=== PATIENT | female | born 1940 | race Caucasian/White ===

== ENCOUNTER → 2017-05-22 | Outpatient (CLI) | payer OTHER ==
[~2017-05-22] MED LIST: CALC-354 PO; CLB200 PO; CYCL5TAB PO; DOCU100C PO; GABA-112 PO; LSN40 PO; SYN75 PO
[2017-05-22 17:39] LABS: URINE APPEARANCE CLEAR (CLEAR); URINE BILIRUBIN NEG (NEG); URINE COLOR YELLOW; URINE EPITHELIAL CELL AUTO >30 /lpf (0-5); URINE NITRITE NEG (NEG); URINE PH 6.5 (4.5-7.5); URINE SPECIFIC GRAVITY 1.026 (1.000-1.030); UROBILINOGEN NEG (NEG)
[2017-05-22 17:54] LABS: MANUAL MICROSCOPIC REQUIRED? NO; REVIEW REQ? YES
[2017-05-22 18:00] LABS: URINE MUCUS PRESENT (NONE PRSENT)
== END | disposition home or self-care (01) ==
LOC: C.LABBFT 13:58
PROVIDERS: ATTEND Physician Assistant Medical
DX: R39.9 Unspecified symptoms and signs involving the genitourinary system (principal)

== ENCOUNTER → 2017-05-24 | Outpatient (CLI) | payer OTHER ==
[2017-05-24 12:32] LABS: BASO % 0.7 %; BASO ABS # 0.04 K/uL (0-0.2); COMPLETE YES; EOS % 2.8 %; HEMATOCRIT 41.9 % (37-47); IG% 0.2 %; LYMPH % 18.4 %; LYMPH ABS # 1.06 K/uL (1.2-3.4); MEAN CELL VOLUME 93.1 fL (80-100); MEAN CORPUSCULAR HEMOGLOBIN 30.2 pg (25-34); MEAN CORPUSCULAR HGB CONC 32.5 g/dl (32-36); MEAN PLATELET VOLUME 10.9 fL (7.4-10.4); MONO % 11.3 %; NEUT % 66.6 %; PLATELET COUNT 231 K/uL (130-400); WHITE BLOOD COUNT 5.75 K/uL (4.8-10.8)
[2017-05-24 12:57] LABS: ALT/SGPT 24 U/L (12-78); AST/SGOT 25 U/L (15-37); BLOOD UREA NITROGEN 21 mg/dl (7-18); BUN/CREATININE RATIO 22.6 (10-20); CALCIUM 9.5 mg/dl (8.5-10.1); CARBON DIOXIDE 27 mmol/L (21-32); CHLORIDE 106 mmol/L (98-107); CREATININE 0.92 mg/dl (0.60-1.20); GLUCOSE 95 mg/dl (70-99); POTASSIUM 4.3 mmol/L (3.5-5.1); SODIUM 141 mmol/L (136-145)
[2017-05-24 13:08] LABS: ALB/GLOB RATIO 0.9 (0.9-2); ALKALINE PHOSPHATASE 73 U/L (45-117); CHOLESTEROL 197 mg/dl (0-200); HDL CHOLESTEROL 98 mg/dl; LDL CHOLESTEROL CALCULATED 86 mg/dl; THYROID STIMULATING HORMONE 0.176 uIu/ml (0.300-4.500); TRIGLYCERIDES 66 mg/dl (0-150); VERY LOW DENSITY LIPOPROT CALC 13 mg/dl
== END | disposition home or self-care (01) ==
LOC: C.LABBFT 11:13
PROVIDERS: ATTEND Internal Medicine
DX: I10 Essential (primary) hypertension (principal); E03.9 Hypothyroidism, unspecified

== ENCOUNTER → 2018-02-19 | Outpatient (CLI) | payer OTHER ==
[~2018-02-19] MED LIST changes: +BUSP5TAB59 PO; -CALC-354 PO; +CHOL1CAP67; -DOCU100C PO; +IBUP-103 PO; +LISI40TA3 PO; -LSN40 PO
--- NOTE | 2018-02-19 09:59 | DIAGNOSTIC IMAGING REPORT ---
(CHEST) THORAX WITHOUT CLINICAL HISTORY: 77 years-old Female presenting with R91.1 Pulmonary nodule. TECHNIQUE: Multidetector CT imaging of the chest was performed without the use of intravenous contrast. IV contrast: None. A dose lowering technique was used consistent with the principles of ALARA (as low as reasonably achievable). COMPARISON: 05/18/2013. CT DOSE (mGy.cm): The estimated cumulative dose is 205.65 mGy.cm. FINDINGS: Instrument Inspector topogram: Hyperinflation. On soft tissue windows, thyroid poorly visualized. Normal thoracic inlet otherwise. No axillary, supraclavicular, or mediastinal lymphadenopathy. Evaluation of the ish limited without intravenous contrast. Atherosclerosis of the aorta. Four-vessel aortic arch. Ectasia of the ascending aorta measuring 3.6 cm in diameter. Normal heart size. Coronary artery calcification. No pericardial or pleural effusion. Well-defined hypodensity in the left hepatic lobe, indeterminate but likely hepatic cyst or smaller adjacent similar appearing lesion likely cyst. On lung windows, hyperinflated lungs. Pleural parenchymal scarring with paraseptal emphysematous changes at the apices. Scattered linear opacities in the right middle lobe and right lower lobe likely scarring. Vague groundglass and linear opacity in the superior segment of the lingula (series 4 image 131), unchanged and likely scarring. Focal solid nodular region along an area of scarring in the superior segment of the right lower lobe measuring 8 mm (series 4 image 127). This is new from prior. Multiple punctate nodules evident bilaterally. These nodules were present on prior exam. Limited bronchiectasis suggested. Central airways patent. On bone windows, degenerative changes of the spine. IMPRESSION: 1. Solid 8 mm pulmonary nodule in the right lower lobe. Follow-up per Carlos Society 2017 recommendations below. Alternatively, this may represent a nodular focus of scarring. This is new from prior. 2. Multiple bilateral punctate pulmonary nodules similar to 2013. Combined with scattered areas of scarring and limited bronchiectasis, this could suggest a chronic indolent atypical infection such as mycobacterium avium intracellulare though the lack of significant progression may argue against active infection. 3. Pleural parenchymal scarring and paraseptal emphysematous changes at the apices as on prior exam. Please refer to below summary of Fleischner Society 2017 recommendations for follow-up of incidental CT nodules (H Raheel et al. Guidelines for management of incidental pulmonary nodules detected on CT images: From the Fleischner Society 2017. Radiology 2017; 284: 228-243.) SOLID NODULES Single nodule; size < 6 mm * Low risk patients: No routine follow-up * High risk patients: Optional CT at 12 months Single nodule; size 6-8 mm * Low risk patients: CT at 6-12 months, then consider CT at 18-24 months * High risk patients: CT at 6-12 months, then at 18-24 months Single nodule; size > 8 mm * Either low or high risk patients: Considered CT at 3 months, PET/CT, or tissue sampling Multiple nodules; size < 6 mm * Low risk patients: No routine follow up * High risk patients: Optional CT at 12 months Multiple nodules; size 6-8 mm * Low risk patients: CT at 3-6 months, then consider CT at 18-24 months * High risk patients: CT at 3-6 months, then at 18-24 months Multiple nodules; size > 8 mm * Low risk patients: CT at 3-6 months, then consider at 18-24 months * High risk patients: CT at 3-6 months, then at 18-24 months SUBSOLID NODULES Single ground-glass nodule * Nodule size < 6 mm: No routine follow-up * Nodule size > or = 6 mm: CT at 6-12 months to confirm persistence, then CT every 2 years until 5 years Single part-solid nodule * Nodule size < 6 mm: No routine follow-up * Nodules size > or = 6 mm: CT at 3-6 months to confirm persistence. If unchanged and solid component remains < 6 mm, annual CT should be performed for 5 years Multiple nodules * Nodule size < 6 mm: CT at 3-6 months. If stable, consider CT at 2 and 4 years. * Nodules size > or = 6 mm: CT at 3-6 months. Subsequent management based on the most suspicious nodule(s) NOTE: 1) These guidelines apply to incidental nodules. These guidelines do NOT apply to patients younger than 35 years, immunocompromised patients, or patients with cancer. 2) Risk categories: * Low risk patients: Minimal or absent history of smoking and/or other known risk factors * High risk patients: History of smoking, exposure to other carcinogens, emphysema, fibrosis, upper lobe location, family history of lung cancer, etc. 3) If a nodule up to 8 mm is partly solid or is ground glass, further follow-up is required after 24 months to exclude possible slow growing adenocarcinoma. Electronically signed by: Misael Mcclendon M.D. 02/19/2018 9:58 AM Dictated Date/Time: 02/19/2018 9:50 AM
== END | disposition home or self-care (01) ==
LOC: C.CTS 09:33
PROVIDERS: ATTEND Physician Assistant Medical
DX: R91.1 Solitary pulmonary nodule (principal)

== ENCOUNTER 2020-01-24 19:47 | Inpatient (IN) ==
[2020-01-24] MEDS ORDERED: MoRPHine SULFATE 2 MG/ML CARP IV PRN (20:17)
--- NOTE | 2020-01-24 20:27 | Emergency Department Note ---
History of Present Illness General Chief complaint: Hip Pain Stated complaint: FALL Time Seen by Provider: 01/24/20 19:58 Source: patient Mode of arrival: EMS Limitations: no limitations History of Present Illness Provider complaint: left hip pain Onset (ago): hour(s) Location: hip, pelvis and lower extremity Radiation: extremity Severity: moderate Pain Consistency: + constant Maximum Pain Intensity: 2 Relieved By: + immobilization Exacerbated By: + movement Associated symptoms: + denies other symptoms Treatments prior to arrival: none This is an 79-year-old female who presents from home after a fall. Patient states she had not tied her shoes and her shoes got caught in her walker and she fell landing on her left side. Patient denies head injury or loss of consciousness. Patient states she could not get up due to pain at her left thigh and hip. Patient denies any prior injury or surgery to the left hip. Patient denies any dizziness, nausea, chest pain, trouble breathing. Patient denies any numbness or tingling. Patient states the pain is tolerable if she does not move the left leg, however with any movement pain is much worse. Patient denies any swelling. Patient denies any other preceding or prodromal symptoms to suggest near syncope. Patient denies any use of anticoagulation. Denies any recent change in medications. Pt seen during a time of high acuity and national emergency pandemic while wearing PPE. Home Medications Home Medications Medication Instructions Recorded Confirmed Type docusate sodium [Stool Softener] 100 mg PO DAILY 05/13/18 01/24/20 History calcium carbonate 600 mg (1,500 2 cap PO HS cap 02/06/19 01/24/20 History mg)-vitamin D3 500 unit capsule cyclosporine [Restasis] 1 drp OPB Q12H PRN 09/10/19 01/24/20 History ibuprofen [Advil] 400 mg PO Q6H PRN 09/10/19 01/24/20 History timolol maleate 1 drp OPB QAM 09/10/19 01/24/20 History buspirone 5 mg tablet 5 mg PO BID PRN #180 tab 09/21/19 01/24/20 Rx lisinopril 40 mg tablet 40 mg PO QAM #90 tab 09/21/19 01/24/20 Rx celecoxib 200 mg capsule 200 mg PO DAILY #90 cap 10/14/19 01/24/20 Rx levothyroxine 75 mcg tablet 75 mcg PO DAILY #90 tab 10/16/19 01/24/20 Rx gabapentin [Neurontin] 100 mg PO TID 01/24/20 01/24/20 History Allergies Allergy/AdvReac Type Severity Reaction Status Date / Time No Known Allergies Allergy Verified 01/24/20 21:54 Past Med/Surg History Medical History Anemia Anxiety Cancer COLON POLYP REMOVED GERD (gastroesophageal reflux disease) Hyperlipidemia Hypothyroidism Non-traumatic compression fracture of thoracic vertebra (Inactive) Osteoarthritis Peripheral neuropathy Surgical History History of bilateral tubal ligation History of cataract surgery RT History of colonoscopy History of tonsillectomy and adenoidectomy (Resolved) History of tooth extraction Family History Father Bone cancer Mother Hypertension Myocardial infarction Social History Preferred Language: Indonesian Communication Ability: Effective Er Nurse Required: No Beliefs That Will Affect Care: None Current Living Situation: Alone Other Information That Helps Us Care for You: No Feels Safe at Home: Yes Safety Concerns: Feels Safe At This Time Smoking Status: Never smoker Do You Dip or Chew Tobacco: No ; Second Hand Exposure: No ; Hx Alcohol Use: No Hx Substance Use: No Review of Systems See HPI for pertinent positives & negatives. and A total of 10 systems reviewed and were otherwise negative Physical Exam Vital Signs Vital Signs - 24 hr 01/24/20 20:14 01/24/20 21:44 Temperature 36.8 C Temperature Source Oral Pulse Rate 85 Pulse Rate [Apical] 75 Pulse Rhythm Regular Pulse Rhythm [Apical] Regular Pulse Strength Normal Pulse Strength [Apical] Normal Respiratory Rate 18 20 Respiratory Effort / Characteristics Non-Labored Spontaneous Non-Labored Spontaneous Respiratory Depth Normal Normal Respiratory Pattern Regular Blood Pressure 215/107 H Blood Pressure [Right Arm] 201/111 H Blood Pressure Mean 143 Blood Pressure Mean [Right Arm] 141 Blood Pressure Position Lying Blood Pressure Position [Right Arm] Lying Pulse Oximetry 85 L 95 Oxygen Delivery Method Room Air Room Air Sepsis Recent Fever Within 48 Hours No Sepsis New/Unexplained Change in Mental Status No Sepsis Action Taken by Nursing No Action Required GENERAL: alert, well appearing, well nourished, no distress, non-toxic HEAD: nc/at, no cephalohematoma EYE EXAM: normal conjunctiva, PERRL and EOM's grossly intact OROPHARYNX: no exudate, no erythema, lips, buccal mucosa, and tongue normal and mucous membranes are moist NECK: supple, no nuchal rigidity, no adenopathy, non-tender, FROM LUNGS: Clear to auscultation. Normal chest wall mechanics, no w/r/r HEART: no murmurs, S1 normal and S2 normal, no chest wall tenderness with palpation ABDOMEN: abdomen soft, non-tender, normo-active bowel sounds, no masses, no rebound or guarding. BACK: Back is symmetrical on inspection and there is no deformity, no midline tenderness, no CVA tenderness. SKIN: no rashes and no bruising UPPER EXTREMITIES: upper extremities are grossly normal. FROM, nml pulses b/l. LOWER EXTREMITIES: No pitting edema. Nml pulses b/l. Pain with palpation over the left lateral hip and proximal femur, left leg held in slight external rotation and appears slightly shortened, no other bony tenderness with palpation of the pelvis and pelvis stable to compression. No further distal deformity or evidence of trauma. Nml sensation b/l. NEURO EXAM: Normal sensorium, cranial nerves II-XII grossly intact, normal speech, no gross weakness of arms, no gross weakness of legs. Gross sensation intact. Course Course 2119: Patient and daughter at bedside updated on results and plan. Patient has never seen orthopedics prior. Daughter states patient does get urinary tract infections. 2129: Case discussed with Dr. Lu. They will contact orthopedics. Made aware of UTI and antibiotics. Administered Medications Docusate Sodium (Colace) 100 mg PO DAILY [facility] Stop: 02/24/20 08:59 Last Admin: 01/25/20 07:57 Dose: Not Given Documented by: [id number] Gabapentin (Neurontin) 100 mg PO TID [facility] Stop: 02/24/20 08:59 Last Admin: 01/25/20 15:22 Dose: 100 mg Documented by: [id number] Admin: 01/25/20 07:58 Dose: Not Given Documented by: [id number] Sodium Chloride (Nss 1000ml) 1,000 mls @ 80 mls/hr IV .[id number] [facility] Stop: 02/24/20 15:59 Last Admin: 01/25/20 15:22 Dose: 80 mls/hr Documented by: [id number] Levothyroxine Sodium (Synthroid) 75 mcg PO DAILYBB [facility] Stop: 02/24/20 06:29 Last Admin: 01/25/20 05:27 Dose: Not Given Documented by: [id number] [facility]inop[facility] (Zestril) [facility] Stop: 02/24/20 08:59 Last Admin: 01/25/20 07:58 Dose: Not Given Documented by: [id number] Morphine Sulfate (Morphine Sulfate) 2 mg IV Q2H PRN PRN Reason: MODERATE Pain (Scale 4,5,6) Stop: 02/07/20 23:08 Last Admin: 01/25/20 15:30 Dose: 2 mg Documented by: [id number] Admin: 01/25/20 05:24 Dose: 2 mg Documented by: [id number] Admin: 01/24/20 23:53 Dose: 2 mg Documented by: [id number] Timolol Maleate (Timoptic 0.25% Oph) 1 drops OPB [facility] Stop: 02/24/20 08:59 Last Admin: 01/25/20 08:00 Dose: 1 drops Documented by: [id number] Discontinued Medications Sodium Chloride (Nss 1000ml) 1,000 mls @ 150 mls/hr IV .[id number] [facility] Stop: 01/25/20 03:09 Last Infusion: 01/25/20 00:06 Dose: 0 mls/hr Documented by: [id number] Admin: 01/24/20 20:53 Dose: 150 mls/hr Documented by: [id number] Ceftriaxone Sodium (Rocephin) 1,000 mg in 50 mls @ 100 mls/hr IV NOW [facility] Stop: 01/24/20 21:52 Last Infusion: 01/25/20 00:06 Dose: 0 mls/hr Documented by: [id number] Admin: 01/24/20 21:56 Dose: 100 mls/hr Documented by: [id number] Dextrose/Lactated Ringer's (D5w And Lactated Ringers) 1,000 mls @ 80 mls/hr IV .[id number] [facility] Stop: 01/26/20 00:08 Last Admin: 01/25/20 15:21 Dose: Not Given Documented by: [id number] Infusion: 01/25/20 15:21 Dose: 0 mls/hr Documented by: [id number] Infusion: 01/25/20 10:47 Dose: 0 mls/hr Documented by: [id number] Admin: 01/24/20 23:53 Dose: 80 mls/hr Documented by: [id number] Labetalol HCl (Normodyne) 5 mg IV NOW [facility] Stop: 01/24/20 22:56 Last Admin: 01/24/20 23:53 Dose: 5 mg Documented by: [id number] Cosigned by: [id number] Morphine Sulfate (Morphine Sulfate) 2 mg IV Q1H PRN PRN Reason: Moderate Pain (Rating 3,4,5,6) Stop: 02/07/20 20:16 Last Admin: 01/24/20 20:52 Dose: 2 mg Documented by: [id number] Medical Decision Making Differential Diagnosis Differential diagnoses include major intracranial, cervical, spinal, thoracic, abdominal, pelvic and neurologic injury. Fracture, contusion, sprain, strain, laceration, abrasions included as well. Medical Records Attestation: I reviewed the patient's medical records. Home Medications Current Medication List: was personally reviewed by me Laboratory Data Attestation: I reviewed the patient's lab results. Result diagrams: 01/25/20 07:27 01/25/20 06:35 Lab Results 01/24/20 01/24/20 01/24/20 Range/Units 20:27 20:27 20:27 WBC 12.60 H (4.8-10.8) K/uL RBC 4.22 (4.2-5.4) M/uL Hgb 13.0 (12.0-16.0) g/dL Hct 41.2 (37-47) % MCV 97.6 (80-100) fL MCH 30.8 (25-34) pg MCHC 31.6 L (32-36) g/dL RDW Std Deviation 50.5 H (36.4-46.3) fL RDW Coeff of Ralf 14.1 (11.5-14.5) % Plt Count 191 (130-400) K/uL MPV 10.3 (7.4-10.4) fL Immature Gran % (Auto) 0.8 % Neut % (Auto) 87.0 % Lymph % (Auto) 5.1 % [place]bon % (Auto) 5.2 % Eos % (Auto) 1.7 % Baso % (Auto) 0.2 % Neut # (Auto) 10.97 H (1.4-6.5) K/uL Lymph # (Auto) 0.64 L (1.2-3.4) K/uL Bourbon # (Auto) 0.66 H (0.11-0.59) K/uL Eos # (Auto) 0.21 (0-0.5) K/uL Baso # (Auto) 0.02 (0-0.2) K/uL Immature Gran # (Auto) 0.10 H (0.00-0.02) K/uL PT 11.3 (9.0-12.0) Seconds INR 1.1 (0.9-1.1) APTT 26.7 (21.0-31.0) Seconds PTT Ratio 1.0 Sodium (136-145) mmol/L Potassium (3.5-5.1) mmol/L Chloride (98-107) mmol/L Carbon Dioxide (21-32) mmol/L Anion Gap (3-11) BUN (7-18) mg/dl Creatinine (0.6-1.2) mg/dl Est Cr Clr Drug Dosing ml/min Est GFR ( Amer) Est GFR (Non-Af Amer) BUN/Creatinine Ratio (10-20) Glucose (70-99) mg/dl Calcium (8.5-10.1) mg/dl Urine Color Urine Appearance (Clear) Urine pH (4.5-7.5) Ur Specific [place] (1.000-1.030) Urine Protein (Negative) Urine Glucose (UA) (Negative) Urine Ketones (Negative) Urine Blood (Negative) Urine Nitrite (Negative) Urine Bilirubin (Negative) Urine Urobilinogen (Negative) Ur Leukocyte Esterase (Negative) Urine WBC (Auto) (0-5) /hpf Urine RBC (Auto) (0-4) /hpf U Hyaline Cast (Auto) (0-5) /lpf U Epithel Cells (Auto) (0-5) /lpf Urine Bacteria (Auto) (Negative) Blood Type O Positive Antibody Screen NEGATIVE 01/24/20 01/24/20 Range/Units 20:27 21:00 WBC (4.8-10.8) K/uL RBC (4.2-5.4) M/uL Hgb (12.0-16.0) g/dL Hct (37-47) % MCV (80-100) fL MCH (25-34) pg MCHC (32-36) g/dL RDW Std Deviation (36.4-46.3) fL RDW Coeff of Ralf (11.5-14.5) % Plt Count (130-400) K/uL MPV (7.4-10.4) fL Immature Gran % (Auto) % Neut % (Auto) % Lymph % (Auto) % [place] % (Auto) % Eos % (Auto) % Baso % (Auto) % Neut # (Auto) (1.4-6.5) K/uL Lymph # (Auto) (1.2-3.4) K/uL [place] # (Auto) (0.11-0.59) K/uL Eos # (Auto) (0-0.5) K/uL Baso # (Auto) (0-0.2) K/uL Immature Gran # (Auto) (0.00-0.02) K/uL PT (9.0-12.0) Seconds INR (0.9-1.1) APTT (21.0-31.0) Seconds PTT Ratio Sodium 142 (136-145) mmol/L Potassium 4.2 (3.5-5.1) mmol/L Chloride 108 H (98-107) mmol/L Carbon Dioxide 30 (21-32) mmol/L Anion Gap 4.0 (3-11) BUN 25 H (7-18) mg/dl Creatinine 0.92 (0.6-1.2) mg/dl Est Cr Clr Drug Dosing 31.6 ml/min Est GFR ( Amer) 67.7 Est GFR (Non-Af Amer) 58.4 BUN/Creatinine Ratio 26.8 H (10-20) Glucose 101 H (70-99) mg/dl Calcium 8.8 (8.5-10.1) mg/dl Urine Color Yellow Urine Appearance Cloudy A (Clear) Urine pH 8.0 H (4.5-7.5) Ur Specific [place] 1.018 (1.000-1.030) Urine Protein Trace H (Negative) Urine Glucose (UA) Negative (Negative) Urine Ketones Negative (Negative) Urine Blood Negative (Negative) Urine Nitrite Positive A (Negative) Urine Bilirubin Negative (Negative) Urine Urobilinogen Negative (Negative) Ur Leukocyte Esterase 1+ H (Negative) Urine WBC (Auto) >30 H (0-5) /hpf Urine RBC (Auto) 0-4 (0-4) /hpf U Hyaline Cast (Auto) 1-5 (0-5) /lpf U Epithel Cells (Auto) 5-10 H (0-5) /lpf Urine Bacteria (Auto) 4+ H (Negative) Blood Type Antibody Screen Imaging Data Attestation: I personally reviewed and interpreted this imaging study as follows: My Impression: Chest x-ray: 1 view chest x-ray was reviewed by me and was negative for cardiomegaly, effusions, focal consolidation, wide mediastinum, pneumothorax, and rib fractures. Patient does appear hyperinflated. Left hip/pelvis: 3 views of the left hip and an AP pelvis were reviewed by me. Patient found to have left intertrochanteric hip fracture. No other acute fracture dislocation noted. Blood Pressure Blood Pressure Findings: Elevated blood pressure Blood Pressure Disposition: further management by hospitalist [place] Narrative Elderly female presenting here following what she reports was a mechanical fall at home with her walker. VS stable, pt hypertensive. Given PE findings, concern for left hip fx. Pt denied any other complaints or injury. Denied prodromal or preceeding symptoms to suggest near syncope or other etiology of fall. Pt found to have left intertrochanteric hip fx. Labs sent in addition, UA with UTI. Per daughter at bedside, pt with hx of UTI. Pt given rocephin IV here. Case discussed with hospitalist for medical evaluation and inpatient mgmt. They will consult ortho for additional evaluation and likely surgical intervention. No evidence of bacteremia/sepsis. No evidence of CHRISTOPHER/ARF. I do not suspect pyelo or obstructive uropathy in addition. Pt and daughter made aware of all results and are in agreement with the plan. Pt was noted to be mildly hypoxic initially, doesn't wear home oxygen. No hx of COPD. Pt was able to be weaned off in the ED and she reported no SOB or recent respiratory distress. I do not suspect ACS, PE, and no CXR evidence of chf, effusion, infiltrate, pneumothorax, or rib fx. An order was placed for continuous cardiac monitoring. The monitor shows a rate of 80 with normal sinus_ rhythm. Impression & Plan Closed intertrochanteric fracture of left hip, Hypoxia, Acute UTI (urinary tract infection), Fall Discharge Plan Visit Data *Final* Discharge Date/Time: 01/24/20 23:02 Chief Complaint: Hip Pain Stated Complaint: FALL ED Provider: Dalia Brito Discharge Problem: Closed intertrochanteric fracture of left hip, Hypoxia, Acute UTI (urinary tract infection), Fall Patient Disposition: Admitted As Inpatient Discharge Instructions Interventions: ED Discharge Assessment Last Done: 01/24/20 23:02 Discharge Problem: Closed intertrochanteric fracture of left hip Qualifiers: Encounter type: initial encounter Fracture alignment: nondisplaced Qualified Code(s): S72.145A - Nondisplaced intertrochanteric fracture of left femur, initial encounter for closed fracture Fall Qualifiers: Encounter type: initial encounter Qualified Code(s): W19.XXXA - Unspecified fall, initial encounter
[2020-01-24] MEDS ORDERED: SODIUM CHLORIDE 0.9% 1000ML 1,000 ML IV SCH (20:30)
[2020-01-24 20:44] LABS: Basophils # (auto) 0.02 K/uL (0-0.2); Basophils % (auto) 0.2 %; Eosinophils # (auto) 0.21 K/uL (0-0.5); Eosinophils % (auto) 1.7 %; Hematocrit (blood only) 41.2 % (37-47); Immature Granulocytes % (auto) 0.8 %; Lymphocytes # (auto) 0.64 K/uL (1.2-3.4); Lymphocytes % (auto) 5.1 %; Mean Corpuscular Hemoglobin 30.8 pg (25-34); Mean Corpuscular Hgb Conc 31.6 g/dL (32-36); Mean Corpuscular Volume 97.6 fL (80-100); Mean Platelet Volume 10.3 fL (7.4-10.4); Monocytes # (auto) 0.66 K/uL (0.11-0.59); Monocytes % (auto) 5.2 %; Neutrophils # (auto) 10.97 K/uL (1.4-6.5); Platelet Count 191 K/uL (130-400); RDW Coefficient of Variation 14.1 % (11.5-14.5); RDW Standard Deviation 50.5 fL (36.4-46.3); Red Blood Count 4.22 M/uL (4.2-5.4)
[2020-01-24 20:59] LABS: BUN Creatinine Ratio 26.8 (10-20); Calcium 8.8 mg/dl (8.5-10.1); Creatinine Clr Calc Pharmacy 31.6 ml/min; Est GFR (African American) 67.7; Est GFR (Non-African American) 58.4; Potassium 4.2 mmol/L (3.5-5.1)
[2020-01-24 21:02] LABS: INR 1.1 (0.9-1.1); Partial Thromboplastin Time 26.7 Seconds (21.0-31.0); Prothrombin Time 11.3 Seconds (9.0-12.0)
[2020-01-24 21:11] LABS: Appearance Urine Cloudy (Clear); Bacteria Urine Automated 4+ (Negative); Bilirubin Urine Negative (Negative); Blood Urine Negative (Negative); Color Urine Yellow; Glucose Urine UA Negative (Negative); Ketones Urine Negative (Negative); Leukocyte Esterase Urine 1+ (Negative); Nitrite Urine Positive (Negative); RBC Urine Automated 0-4 /hpf (0-4); Specific Gravity Urine 1.018 (1.000-1.030); Urobilinogen Urine Negative (Negative); WBC Urine Automated >30 /hpf (0-5)
[2020-01-24 21:16] LABS: Protein Urine Trace (Negative); Sulfosalicylic Acid Urine Positive (Negative)
[2020-01-24] MEDS ORDERED: cefTRIAXone SODIUM 1,000 MG/50 ML BAG IV STA (21:23)
--- NOTE | 2020-01-24 22:36 | History & Physical Report ---
Date of Service January 24, 2020 Assessment & Plan (1) Hip fracture, intertrochanteric: Candace Moon is a 79 y/o female with past medical hx of osteoporosis w/compression fractures of the thoracic spine, cervical dystonia and depression/anxiety, HTN, poor appetite, physical deconditioning who presents to [facility] ED for CC of Fall. - Left hip intertrochanteric fracture. Most likely mechanical in setting of osteoporosis and significantly underweight with BMI of 15.8. - consults placed to ortho and anesthesia - Hip fracture order set used with proper nursing protocols ordered. - Morphine 2mg IV PRN for pain. - NPO - ACS Surgical Risk calculator used with patient being a below average risk for surgical complication (5.6%) or serious complication (5.6%). - will order COVID testing in need for possible surgical intervention. - Mild Leukocytosis most likely stress demargination response, trend. - History of memory issues in elderly 79 y/o, ordered fall precautions and one-on-one PRN if becomes delirious with admission. Code: DNR/DNI FENGI: NPO, D5W Lactated ringers IVF @ 80ml/hr x 2 bags DVT ppx: SCDs Dispo: Med/sug tele, full admit (2) Anxiety and depression: currently anxious about being alone in hospital c/w buspirone 5mg BID PO (3) Osteoporosis: Noted in history, was on Calcium and Vit D as outpatient. Unable to find DEXA records from chart review (4) Hypothyroidism: c/w synthroid 75mcg PO (5) Hypertension: c/w lisinopril 40mg PO daily Hydralazine 10mg IV PRN for >180/>110 (6) Poor appetite: BMI of 15.8. Noted recent history of weight loss and poor appetite. Dietary consult ordered Maybe could benefit from Remeron or appetite stimulant. Is very thin and would need increase protein for proper healing. (7) UTI (urinary tract infection): UA with positive nitrites, WBC >30, and eipthel cells 5-10, symptoms of f requency. Treated with Rocephin in ED and will continue, follow culture and may discontinue if negative (8) Hypoxia: Was noted to have pulse ox in ED of 85% without symptoms corrected with NC O2, follow clinically History of Present Illness Chief Complaint: Fall; Left hip intertrochanteric hip fracture Primary Care Provider: Gonzalo Johnson MD Candace Moon is a 79 y/o female with past medical hx of osteoporosis w/compression fractures of the thoracic spine, cervical dystonia and depression/anxiety, HTN, poor appetite, physical deconditioning who presents to [facility] ED for CC of Fall. She notes fall occurred about 6:45pm. She was getting up from sitting to go to bathroom. She states that she uses a walker and her walker slid out from under her. She fell onto her left side. She was unable to get up. Her two daughters were at patient's home and helped her up. She denied any pro-dromal symptoms, no chest pain, dizziness/lightheadedness. She denies any other injury. Did not hit her head, no acute neck injury, no knee or ankle or upper extremity injury. She notes she does live alone with her cat. She reports that she last had something to drink was about 5pm; she cannot recall the last time she ate food. She denies any numbness or tingling in her lower extremities. She points to location of pain to her left hip. Her pain was improved with morphine 2mg IV x1 in ED. She had a UTI concerning for infection and notes some urinary frequency but no dysuria. Her daughter is with her at bedside and is able to help as historian. Patient is a vague historian. Patient and daughter acknowledge that patient has a living will and is a DNR/DNI. She is not on any current anti-coagulation. She was started on Rocephin IV for UTI. She also had pulse ox of 87% which was corrected with NC O2. No reported smoking history, does not wear O2 at home. No respiratory complaints of cough or dyspnea. Allergies Allergy/AdvReac Type Severity Reaction Status Date / Time No Known Allergies Allergy Verified 01/24/20 21:54 Home Medications Home Medications Medication Instructions Recorded Confirmed Type docusate sodium [Stool Softener] 100 mg PO DAILY 05/13/18 01/24/20 History calcium carbonate 600 mg (1,500 2 cap PO HS cap 02/06/19 01/24/20 History mg)-vitamin D3 500 unit capsule cyclosporine [Restasis] 1 drp OPB Q12H PRN 09/10/19 01/24/20 History ibuprofen [Advil] 400 mg PO Q6H PRN 09/10/19 01/24/20 History timolol maleate 1 drp OPB QAM 09/10/19 01/24/20 History buspirone 5 mg tablet 5 mg PO BID PRN #180 tab 09/21/19 01/24/20 Rx lisinopril 40 mg tablet 40 mg PO QAM #90 tab 09/21/19 01/24/20 Rx celecoxib 200 mg capsule 200 mg PO DAILY #90 cap 10/14/19 01/24/20 Rx levothyroxine 75 mcg tablet 75 mcg PO DAILY #90 tab 10/16/19 01/24/20 Rx gabapentin [Neurontin] 100 mg PO TID 01/24/20 01/24/20 History Past Med/Surg History Medical History Anemia Anxiety Cancer COLON POLYP REMOVED GERD (gastroesophageal reflux disease) Hyperlipidemia Hypothyroidism Non-traumatic compression fracture of thoracic vertebra (Inactive) Osteoarthritis Peripheral neuropathy Surgical History History of bilateral tubal ligation History of cataract surgery RT History of colonoscopy History of tonsillectomy and adenoidectomy (Resolved) History of tooth extraction Family History Father Bone cancer Mother Hypertension Myocardial infarction Social History Preferred Language: Qatari Communication Ability: Effective Housemaid Required: No Current Living Situation: Alone Feels Safe at Home: Yes Smoking Status: Never smoker Second Hand Exposure: No ; Hx Alcohol Use: No Hx Substance Use: No Review of Systems Review of Systems: All systems reviewed & are unremarkable except as noted in HPI & below Constitutional: no fever and no chills Eyes: no diplopia and no spots in vision Ear, Nose, Mouth, Throat: + sore throat (resolved); no nasal congestion, no epistaxis and no facial pain Respiratory: no cough and no dyspnea Cardiovascular: no chest pain and no palpitations Gastrointestinal: no abdominal pain, no nausea and no vomiting Genitourinary: as per Subjective / HPI; no dysuria Musculoskeletal: as per Subjective / HPI and + joint pain (left hip) Integumentary: no rash and no lesions Neurologic: + falls; no numbness and no headache(s) Physical Exam Constitutional: + thin, + frail appearing, cooperative, comfortable and + underweight Eyes: PERRL, conjunctivae normal, anicteric sclerae ENMT: dry mucous membranes; external ear and nose normal Neck: trachea midline no cervical bony tenderness Respiratory: normal respiratory effort, lungs clear to auscultation Cardiovascular: Rate/Rhythm: regular rate and regular rhythm Extremities: no edema Gastrointestinal (Abdomen): Percussion/Palpation: abdomen nontender, no guarding and abdomen not rigid Musculoskeletal: Head/Neck/Chest: normocephalic and head atraumatic left lateral hip and proximal thigh tender to palpation; left leg shortened; no bony tenderness with palpation of pelvis; no sensory deficit in lower extremities; able to move toes bilaterally. Skin: no rashes, warm and dry Neurologic: CN's II-XI intact bilaterally and awake Psychiatric: Orientation: alert and oriented x 3 Affect: + anxious affect Results & Data Results & Data ([facility]) Vital Signs (Past 12 Hours) Vital Signs Temp Pulse Pulse Resp BP BP Pulse Ox 01/24/20 21:44 75 20 201/111 H 95 01/24/20 20:14 36.8 C 85 18 215/107 H 85 L Laboratory Results Laboratory Results - last 24 hr 01/24/20 01/24/20 01/24/20 20:27 20:27 20:27 WBC 12.60 H RBC 4.22 Hgb 13.0 Hct 41.2 MCV 97.6 MCH 30.8 MCHC 31.6 L RDW Std Deviation 50.5 H RDW Coeff of Ralf 14.1 Plt Count 191 MPV 10.3 Immature Gran % (Auto) 0.8 Neut % (Auto) 87.0 Lymph % (Auto) 5.1 Runnels % (Auto) 5.2 Eos % (Auto) 1.7 Baso % (Auto) 0.2 Neut # (Auto) 10.97 H Lymph # (Auto) 0.64 L Runnels # (Auto) 0.66 H Eos # (Auto) 0.21 Baso # (Auto) 0.02 Immature Gran # (Auto) 0.10 H PT 11.3 INR 1.1 APTT 26.7 PTT Ratio 1.0 Sodium Potassium Chloride Carbon Dioxide Anion Gap BUN Creatinine Est Cr Clr Drug Dosing Est GFR ( Amer) Est GFR (Non-Af Amer) BUN/Creatinine Ratio Glucose Calcium Urine Color Urine Appearance Urine pH Ur Specific [place] Urine Protein Urine Glucose (UA) Urine Ketones Urine Blood Urine Nitrite Urine Bilirubin Urine Urobilinogen Ur Leukocyte Esterase Urine WBC (Auto) Urine RBC (Auto) U Hyaline Cast (Auto) U Epithel Cells (Auto) Urine Bacteria (Auto) Blood Type O Positive Antibody Screen NEGATIVE 01/24/20 01/24/20 20:27 21:00 WBC RBC Hgb Hct MCV MCH MCHC RDW Std Deviation RDW Coeff of Ralf Plt Count MPV Immature Gran % (Auto) Neut % (Auto) Lymph % (Auto) R[place] % (Auto) Eos % (Auto) Baso % (Auto) Neut # (Auto) Lymph # (Auto) R[place]els # (Auto) Eos # (Auto) Baso # (Auto) Immature Gran # (Auto) PT INR APTT PTT Ratio Sodium 142 Potassium 4.2 Chloride 108 H Carbon Dioxide 30 Anion Gap 4.0 BUN 25 H Creatinine 0.92 Est Cr Clr Drug Dosing 31.6 Est GFR ( Amer) 67.7 Est GFR (Non-Af Amer) 58.4 BUN/Creatinine Ratio 26.8 H Glucose 101 H Calcium 8.8 Urine Color Yellow Urine Appearance Cloudy A Urine pH 8.0 H Ur Specific [place] 1.018 Urine Protein Trace H Urine Glucose (UA) Negative Urine Ketones Negative Urine Blood Negative Urine Nitrite Positive A Urine Bilirubin Negative Urine Urobilinogen Negative Ur Leukocyte Esterase 1+ H Urine WBC (Auto) >30 H Urine RBC (Auto) 0-4 U Hyaline Cast (Auto) 1-5 U Epithel Cells (Auto) 5-10 H Urine Bacteria (Auto) 4+ H Blood Type Antibody Screen Medications Administered Sodium Chloride (Nss 1000ml) 1,000 mls @ 150 mls/hr IV .[id number] CHIRAG Stop: 01/25/20 03:09 Last Admin: 01/24/20 20:53 Dose: 150 mls/hr Documented by: [id number] Morphine Sulfate (Morphine Sulfate) 2 mg IV Q1H PRN PRN Reason: Moderate Pain (Rating 3,4,5,6) Stop: 02/07/20 20:16 Last Admin: 01/24/20 20:52 Dose: 2 mg Documented by: [id number] Code Status & VTE Plan Code Status DNR/DNI VTE Prophylaxis Plan VTE Prophylaxis will be ordered: Yes Supervising Physician Co-Signing Physician Notes Patient seen and examined, chart reviewed, case discussed with Dr. White and I agree with his assessment and plan as documented above. Briefly, patient is an 79yo C female presenting with left intertrochanteric hip fracture after a mechanical fall at home. Patient denies CP/palpitations/dizziness/numbness/PARRA preceding or following the fall. No head trauma or LOC. She landed on her left hip resulting in fracture. Patient presently doing alright with no additional complaints. She is uncomfortable but in NAD HEENT - NC/AT, PERRL, MMM Heart - +S1/S2, regular, no m/r/g Lungs - CTA Abd - +BS, soft, NT/ND Ext - NV intact, 2 +pulses in UE/LE bilaterally, LLE externally rotated and shortened, no bruising/hematoma Labs and images reviewed. +Leukocytosis. +UA Assessment/Plan: 79yo C female with left intertrochanteric hip fracture fol lowing mechanical fall at home -Admit to medical floor -Orthopedic Surgery consultation appreciated -Pain control with Morphine PRN -Tentatively plan for OR tomorrow. Pre-operative Covid-19 testing ordered -Ceftriaxone for UTI - follow culture -Remainder of plan as above Resident Activity Tracking Resident Involvement: Resident Care Provided Care Provided: Adult Hospital Medicine
[2020-01-24] MEDS ORDERED: LABETALOL HCL IV 5 MG/ML 20ML IV STA (22:55)
[2020-01-24] MEDS ORDERED: NALOXONE HCL 0.4 MG/1 ML VIAL/CARP IV PRN (23:09)
[2020-01-24] MEDS ORDERED: ACETAMINOPHEN 325 MG TAB PO PRN (23:09)
[2020-01-24] MEDS ORDERED: bisacodyL 10 MG SUPP PR PRN (23:09)
[2020-01-24] MEDS ORDERED: MAGNESIUM HYDROXIDE SUSP 30 ML UDC PO PRN (23:09)
[2020-01-24] MEDS ORDERED: ONDANSETRON INJ 2 MG/ML 2 ML VIAL IV PRN (23:09)
[2020-01-24] MEDS ORDERED: HydrALAZINE HCL 20 MG/ML VIAL IV PRN (23:09)
--- NOTE | 2020-01-24 23:42 | Billing Data ---
Date of Service January 24, 2020 Coding Level of Care Code 28885 Initial Inpt Care Lvl 3
[2020-01-24] MEDS: MoRPHine SULFATE 2 MG/ML CARP IV PRN (23:53)
[2020-01-24] MEDS: D5W AND LACTATED RINGERS 1,000 ML IV SCH (23:53)
--- NOTE | 2020-01-25 02:16 | Anesthesiology Consultation ---
Date of Service January 25, 2020 Assessment & Plan (1) Encounter for pre-operative examination: Chart Review Chart Review: Acceptable Risk for Surgery and Patient NOT seen in Pre Admission Testing Consults Requested none History Height/Weight Height: 5 ft 4 in Weight: 41.7 kg Allergies Allergy/AdvReac Type Severity Reaction Status Date / Time No Known Allergies Allergy Verified 01/24/20 21:54 Medications Home Medications Medication Instructions Recorded Confirmed Last Taken docusate sodium [Stool Softener] 100 mg PO DAILY 05/13/18 01/24/20 01/24/20 calcium carbonate 600 mg (1,500 2 cap PO HS cap 02/06/19 01/24/20 01/24/20 mg)-vitamin D3 500 unit capsule cyclosporine [Restasis] 1 drp OPB Q12H PRN 09/10/19 01/24/20 01/24/20 ibuprofen [Advil] 400 mg PO Q6H PRN 09/10/19 01/24/20 01/24/20 timolol maleate 1 drp OPB QAM 09/10/19 01/24/20 01/24/20 buspirone 5 mg tablet 5 mg PO BID PRN #180 tab 09/21/19 01/24/20 01/24/20 lisinopril 40 mg tablet 40 mg PO QAM #90 tab 09/21/19 01/24/20 01/24/20 celecoxib 200 mg capsule 200 mg PO DAILY #90 cap 10/14/19 01/24/20 01/24/20 levothyroxine 75 mcg tablet 75 mcg PO DAILY #90 tab 10/16/19 01/24/20 01/24/20 gabapentin [Neurontin] 100 mg PO TID 01/24/20 01/24/20 01/24/20 Active Medications Generic Name Dose Route Start Last Admin Trade Name Freq PRN Reason Stop Dose Admin Dextrose/Lactated Ringer's 1,000 mls @ 80 mls/hr 01/24/20 23:09 01/24/20 23:53 D5w And Lactated Ringers IV 01/26/20 00:08 80 mls/hr .[id number] CHIRAG Administration Morphine Sulfate 2 mg 01/24/20 23:09 01/24/20 23:53 Morphine Sulfate IV 02/07/20 23:08 2 mg Q2H PRN Administration MODERATE Pain (Scale 4,5,6) Past Medical History Medical History Anemia Anxiety Cancer COLON POLYP REMOVED GERD (gastroesophageal reflux disease) Hyperlipidemia Hypothyroidism Non-traumatic compression fracture of thoracic vertebra (Inactive) Osteoarthritis Peripheral neuropathy Past Family History Family History Father Bone cancer Mother Hypertension Myocardial infarction Past Surgical History Surgical History History of bilateral tubal ligation History of cataract surgery RT History of colonoscopy History of tonsillectomy and adenoidectomy (Resolved) History of tooth extraction Social History Smoking Status: Never smoker Hx Alcohol Use: No Hx Substance Use: No substance use type: does not use Physical Exam Vital Signs Last Vital Signs Temp 36.8 C 01/24/20 20:14 Pulse 68 01/24/20 23:09 Resp 16 01/24/20 23:02 BP 195/88 H 01/24/20 23:02 Pulse Ox 99 01/24/20 23:02 Testing Laboratory Results 01/24/20 20:27 01/24/20 20:27 PT 11.3 Seconds (9.0-12.0) 01/24/20 20: INR 1.1 (0.9-1.1) 01/24/20 20:27 APTT 26.7 Seconds (21.0-31.0) 01/24/20 20:27 Urine Color Yellow 01/24/20 21:00 Urine Appearance Cloudy (Clear) A 01/24/20 21:00 Urine pH 8.0 (4.5-7.5) H 01/24/20 21:00 Ur Specific [place] 1.018 (1.000-1.030) 01/24/20 21:00 Urine Protein Trace (Negative) H 01/24/20 21:00 Urine Glucose (UA) Negative (Negative) 01/24/20 21:00 Urine Ketones Negative (Negative) 01/24/20 21:00 Urine Nitrite Positive (Negative) A 01/24/20 21:00 Ur Leukocyte Esterase 1+ (Negative) H 01/24/20 21:00 Urine WBC (Auto) >30 /hpf (0-5) H 01/24/20 21:00 Urine RBC (Auto) 0-4 /hpf (0-4) 01/24/20 21:00 U Hyaline Cast (Auto) 1-5 /lpf (0-5) 01/24/20 21:00 U Epithel Cells (Auto) 5-10 /lpf (0-5) H 01/24/20 21:00 Urine Bacteria (Auto) 4+ (Negative) H 01/24/20 21:00 Blood Type O Positive 01/24/20 20:27 Antibody Screen NEGATIVE 01/24/20 20:27 Electrocardiogram Date: 01/24/20 Findings: + NSR @ (64) Left axis deviation, When compared with ECG of 31-DEC-2019 17:31, No significant change was found Chest X-Ray Date: 01/24/20 By my read (Angela Escobar MD, PhD) - NAD, X-ray is consistent with chronic emphysematous changes. Official radiology read not yet available.
[2020-01-25] MEDS: MoRPHine SULFATE 2 MG/ML CARP IV PRN ×3 (05:24→21:36)
[2020-01-25] MEDS: LEVOTHYROXINE SODIUM 75 MCG TABLET PO SCH (05:27)
[2020-01-25 07:18] LABS: INR 1.1 (0.9-1.1); Prothrombin Time 11.4 Seconds (9.0-12.0)
--- NOTE | 2020-01-25 07:19 | XRay Report ---
XR hip LT 2V w pelvis CLINICAL HISTORY: trauma trauma. Pain. COMPARISON: 12/31/2019 DISCUSSION: Intertrochanteric fracture left hip. Fracture right symphysis pubis. No evidence for disl ocation. Mild degenerative change of all remaining bony structures. There is no evidence for soft tissue swell ing. IMPRESSION: 1. Intertrochanteric fracture left hip. 2. Fracture right symphysis pubis and/or medial right pubic ring ACT 112: Negative or not required by law. The above report was generated using voice recognition software. It may contain grammatical, syntax or spelling errors. Electronically signed by: Ramon Bundy M.D. 01/25/2020 7:18 AM
--- NOTE | 2020-01-25 07:21 | XRay Report ---
XR chest 1V portable CLINICAL HISTORY: trauma pain. Trauma. COMPARISON STUDY: 12/31/2019 FINDINGS: The bones soft tissues and hemidiaphragms are normal. The cardiomediastinal silhouette is n ormal. The lungs are clear. The pulmonary vasculature is normal. IMPRESSION: Negative chest. ACT 112: Negative or not required by law. The above report was generated using voice recognition software. It may contain grammatical, syntax or spelling errors. Electronically signed by: Ramon Bundy M.D. 01/25/2020 7:19 AM
[2020-01-25 07:36] LABS: BUN Creatinine Ratio 32.1 (10-20); Calcium 7.9 mg/dl (8.5-10.1); Creatinine Clr Calc Pharmacy 42.7 ml/min; Est GFR (African American) 95.1
[2020-01-25 07:40] LABS: Basophils # (auto) 0.01 K/uL (0-0.2); Basophils % (auto) 0.1 %; Eosinophils # (auto) 0.04 K/uL (0-0.5); Eosinophils % (auto) 0.4 %; Hematocrit (blood only) 35.9 % (37-47); Hemoglobin 11.7 g/dL (12.0-16.0); Immature Granulocytes # (auto) 0.03 K/uL (0.00-0.02); Immature Granulocytes % (auto) 0.3 %; Lymphocytes # (auto) 0.57 K/uL (1.2-3.4); Lymphocytes % (auto) 5.3 %; Mean Corpuscular Volume 95.2 fL (80-100); Mean Platelet Volume 10.2 fL (7.4-10.4); Monocytes # (auto) 0.69 K/uL (0.11-0.59); Monocytes % (auto) 6.4 %; Neutrophils # (auto) 9.39 K/uL (1.4-6.5); Neutrophils % (auto) 87.5 %; Platelet Count 139 K/uL (130-400); RDW Coefficient of Variation 14.1 % (11.5-14.5); RDW Standard Deviation 48.4 fL (36.4-46.3); Red Blood Count 3.77 M/uL (4.2-5.4); White Blood Count 10.73 K/uL (4.8-10.8)
[2020-01-25 07:45] LABS: Mean Corpuscular Hgb Conc 32.6 g/dL (32-36)
[2020-01-25] MEDS: DOCUSATE SODIUM 100 MG CAP PO SCH (07:57)
[2020-01-25] MEDS: GABAPENTIN 100 MG CAP PO SCH ×3 (07:58→21:19)
[2020-01-25] MEDS: lisinopriL 40 MG TAB PO SCH (07:58)
[2020-01-25] MEDS: TIMOLOL MALEATE 0.25% OP SOLN 5 ML BTL OPB SCH (08:00)
--- NOTE | 2020-01-25 09:09 | Hospitalist Progress Note ---
Date of Service January 25, 2020 Assessment & Plan (1) Anxiety and depression: (2) Osteoporosis: (3) Hypothyroidism: (4) Hypertension: (5) Poor appetite: (6) UTI (urinary tract infection): (7) Hypoxia: Admission and Anticipated Discharge Date Admission Date: January 24, 2020 Supervising Physician Co-Signing Physician Notes I also saw the patient concurrent with the resident physician and confirmed cummings portions of the history and physical examination. The daughter was at bedside during the time of our visit. Orthopedics had already seen the patient and recommended surgical fixation of her hip fracture, and she has been added to the OR schedule for later today. Intertrochanteric fracture OR today Urinary tract infection Gram-negative bacilli on preliminary culture Ceftriaxone 1 g every 24 Adjust based on sensitivities Hypertension ARINA on hold Monitor blood pressures Hypothyroidism Biochemically and clinically euthyroid (TSH December 30 0.507) Continue home dose of Synthroid Subjective Candace is seen at the bedside this morning with her daughter present. She reports that she feels "okay "at rest, but her left hip hurts as soon as she tries to move. She reports morphine is helping her pain and makes it tolerable. She reports she fell at home, this is her second fall this month. She reports she has felt especially weak in the last 2 months, and has had daily polyuria and intermittent dysuria. Prior to this she felt she was already weak, but could ambulate with a walker. She lives at home alone. She has stairs down to her basement, but she does not use and does not need to go into the basement at any time. She has 1 step into her home. She also endorses some right groin crease pain since falling. Denies shortness of breath, chest pain, difficulty breathing. She did not feel lightheaded or dizzy prior to her fall, she "just went down ". She is aware that her x-rays show fracture of the left trochanter and right pubic ring. She is aware that she will likely need rehab, and that with her current level of strength it is not safe for her to be at home alone. No other questions or concerns at time of HPI. Patient pending surgical intervention this afternoon. Review of Systems Review of Systems: Constitutional: Denies fever, chills, malaise. Endorses chronic global fatigue. Eyes: Denies double vision, vision change- ENT: Denies ear pain, sore throat, sinus pain Cardiovascular: Denies Chest pain, chest pressure, palpitations, extremity swelling Respiratory: Denies shortness of breath, cough, sputum production, difficulty breathing Gastrointestinal: Denies abdominal pain, nausea, vomiting Genitourinary: See subjective Musculoskeletal: Endorses left hip and right groin pain. Movement limited by pain in left lower extremity. Integumentary:Denies rash, lesions, bruising Neurological: Denies headache, numbness, tingling, focal weakness Physical Exam Physical Exam: General:Alert and oriented to name, place. No acute distress. Appears thin, frail. Patient's daughter at bedside. HEENT: Atraumatic, normocephalic. Pulm: CTAB A&P. -wheezes, -rales, -rhonchi. Symmetrical chest rise. No increase work of breathing. No respiratory distress. Cardiac: RRR, -mrg. Radial pulses intact and symmetrical. Abdominal: Nontender, nondistended, soft. BMSK. Patient focally tender to palpation over left trochanter with pain radiating approximately 3 inches distal along the lateral thigh. No left-sided tenderness at ASIS. Right tenderness to palpation at the soft tissue overlying the superior pubic ramus. No right acetabular tenderness. Sensation to soft touch intact in toes bilaterally without asymmetry. PT pulses intact bilaterally without asymmetry. Ankle dorsiflexion/plantar flexion 4+/5 bilaterally. Results & Data Results & Data ([facility]) Vital Signs (Past 12 Hours) Vital Signs Temp Pulse Pulse Pulse Resp BP BP 01/25/20 07:21 36.7 C 67 18 131/69 01/25/20 03:41 36.8 C 68 18 118/62 01/25/20 01:54 142/84 H 01/25/20 00:00 36.5 C 74 16 173/96 H 01/24/20 23:09 68 01/24/20 23:02 68 16 195/88 H 01/24/20 21:44 75 20 201/111 H Pulse Ox Pulse Ox 01/25/20 07:21 100 01/25/20 03:41 91 01/25/20 01:54 01/25/20 00:00 92 94 01/24/20 23:09 01/24/20 23:02 99 01/24/20 21:44 95 Resident Activity Tracking Resident Involvement: Resident Care Provided Care Provided: Adult [facility] Medicine
--- NOTE | 2020-01-25 09:40 | Orthopedic Consultation ---
Date of Consultation January 25, 2020 Assessment & Plan (1) Hip fracture, intertrochanteric: I discussions with her and her daughter at bedside. I did recommend surgical fixation. The procedure of choice would be intramedullary nail fixation of the left hip. Her and her daughter understand the risks, benefits, and alternatives to the procedure and elected to proceed. Questions were answered at bedside and consents were signed. We will proceed with the operative procedure later this afternoon. The decision was made for surgery. She is an increased risk given her age and her very low body weight with a BMI of 15. Present on Admission?: Yes History of Present Illness Reason for Consultation: Left intertrochanteric hip fracture Attending Physician: Reshma Lu, DO History of Present Illness Candace is a pleasant 79-year-old female who lives alone with her cat in [place]. She is a community ambulator with a walker. She was in her usual state of health yesterday when she got up to use the bathroom. The walker slipped out from under her and she fell onto her left hip. She had significant left hip pain. Fortunately, her daughter was there and she brought her to the emergency room. Radiographs demonstrated an intratrochanteric fracture of the left hip. She was admitted to the hospitalist service. Orthopedics was consulted to evaluate and treat. Allergies Allergy/AdvReac Type Severity Reaction Status Date / Time No Known Allergies Allergy Verified 01/24/20 21:54 Home Medications Home Medications Medication Instructions Recorded Confirmed Type docusate sodium [Stool Softener] 100 mg PO DAILY 05/13/18 01/24/20 History calcium carbonate 600 mg (1,500 2 cap PO HS cap 02/06/19 01/24/20 History mg)-vitamin D3 500 unit capsule cyclosporine [Restasis] 1 drp OPB Q12H PRN 09/10/19 01/24/20 History ibuprofen [Advil] 400 mg PO Q6H PRN 09/10/19 01/24/20 History timolol maleate 1 drp OPB QAM 09/10/19 01/24/20 History buspirone 5 mg tablet 5 mg PO BID PRN #180 tab 09/21/19 01/24/20 Rx lisinopril 40 mg tablet 40 mg PO QAM #90 tab 09/21/19 01/24/20 Rx celecoxib 200 mg capsule 200 mg PO DAILY #90 cap 04/01/20 07/12/20 Rx levothyroxine 75 mcg tablet 75 mcg PO DAILY #90 tab 10/16/19 01/24/20 Rx gabapentin [Neurontin] 100 mg PO TID 01/24/20 01/24/20 History Patient History Medical History Anemia Anxiety Cancer COLON POLYP REMOVED GERD (gastroesophageal reflux disease) Hyperlipidemia Hypothyroidism Non-traumatic compression fracture of thoracic vertebra (Inactive) Osteoarthritis Peripheral neuropathy Surgical History History of bilateral tubal ligation History of cataract surgery RT History of colonoscopy History of tonsillectomy and adenoidectomy (Resolved) History of tooth extraction Family History Father Bone cancer Mother Hypertension Myocardial infarction Social History Preferred Language: Slovenian Communication Ability: Effective Porcelain Enameling Supervisor Required: No Beliefs That Will Affect Care: None Current Living Situation: Alone Other Information That Helps Us Care for You: No Feels Safe at Home: Yes Safety Concerns: Feels Safe At This Time Smoking Status: Never smoker Do You Dip or Chew Tobacco: No ; Second Hand Exposure: No ; Hx Alcohol Use: No Hx Substance Use: No Review of Systems Review of Systems: All systems reviewed & are unremarkable except as noted in HPI & below Physical Exam Constitutional: WD/WN, vitals as above Eyes: PERRL, conjunctivae normal, anicteric sclerae ENMT: external ear and nose normal, oropharynx normal Neck: trachea midline, no thyromegaly Respiratory: normal respiratory effort Cardiovascular: RRR, no murmur, no edema Gastrointestinal (Abdomen): normal bowel sounds, soft, nontender, no hepatos plenomegaly Musculoskeletal: On physical examination of the left hip, her skin is clean and dry. She has severe pain in her left groin with logroll of her left hip. Her left leg is shortened and externally rotated. She does have active dorsiflexion and plantarflexion of her left ankle. She is very small with a BMI of 15. Psychiatric: A+Ox3, euthymic affect Results & Data ([place]) Vital Signs (Past 12 Hours) Vital Signs Temp Pulse Pulse Pulse Resp BP BP 01/25/20 07:21 36.7 C 67 18 131/69 01/25/20 03:41 36.8 C 68 18 118/62 01/25/20 01:54 142/84 H 01/25/20 00:00 36.5 C 74 16 173/96 H 01/24/20 23:09 68 01/24/20 23:02 68 16 195/88 H 01/24/20 21:44 75 20 201/111 H Pulse Ox Pulse Ox 01/25/20 07:21 100 01/25/20 03:41 91 01/25/20 01:54 01/25/20 00:00 92 94 01/24/20 23:09 01/24/20 23:02 99 01/24/20 21:44 95 Laboratory Results H & H 01/24/20 01/25/20 01/25/20 Range/Units 20:27 06:35 07:27 Hgb 13.0 Cancelled 11.7 L (12.0-16.0) g/dL Hct 41.2 Cancelled 35.9 L (37-47) % Coagulation 01/24/20 01/25/20 Range/Units 20:27 06:35 INR 1.1 1.1 (0.9-1.1) Diagnostic Findings X-rays of the left hip and pelvis do show a two-part intratrochanteric fracture of the left hip. There is slight varus displacement. PG Care Time/CCT Total # of Minutes Spent Total Time Spent with Patient: Total time spent is greater than 50% in coordination of care (as documented) at patient's floor/unit and/or counseling patient: Coding Level of Care Code 40023 Inpt Consult Level 5 Diagnoses Hip fracture, intertrochanteric S72.143A
[2020-01-25] MEDS ORDERED: MIDAZOLAM HCL 1 MG/ML 2ML VIAL ONE (10:01)
[2020-01-25] MEDS ORDERED: PROPOFOL IV EMULSION 10 MG/ML 20 ML VIAL IV ONE (10:01)
[2020-01-25] MEDS ORDERED: LIDOCAINE HCL 2% 2 ML VIAL/AMP(20MG/ML) INFIL ONE (10:01)
[2020-01-25] MEDS ORDERED: fentaNYL citrate 100 MCG/2 ML VIAL ONE (10:01)
[2020-01-25] MEDS ORDERED: ePHEDrine sulfate 50 MG/ML SYR ONE (10:01)
--- NOTE | 2020-01-25 11:01 | History & Physical Bridge Note ---
Date of Service January 25, 2020 History & Physical Bridge Note I have examined the patient, reviewed the History & Physical and in the interval since the performance of the History & Physical I have noted the following changes of clinical significance: no changes noted
[2020-01-25] MEDS ORDERED: DEXAMETHASONE SOD INJ 4 MG/ML VIAL ONE (13:42)
[2020-01-25] MEDS ORDERED: ONDANSETRON INJ 2 MG/ML 2 ML VIAL ONE (13:42)
--- NOTE | 2020-01-25 13:47 | Fluoroscopy Report ---
INTRAOPERATIVE RADIOGRAPHS CLINICAL HISTORY: Open reduction and internal fixation of the left femur. Fluoroscopy time: 73 seconds. FINDINGS: 3 spot fluoroscopic views of the left hip are correlated with radiographs dated 01/24/2020. There has been intertrochanteric and intramedullary nail fixation of an intertrochanteric fracture of the left femur. Near-anatomic alignment is maintained. A single cortical lag screw transfixes the d istal end of the intramedullary nail. Overlying soft tissue edema is noted. IMPRESSION: Intraoperative images from open reduction and internal fixation of the left femur as abov e. Electronically signed by: Arnol Gudino M.D. 01/25/2020 1:46 PM
--- NOTE | 2020-01-25 13:48 | Operative Report ---
PG Post Operative Report Pre & Post Diagnosis Operation Date: 01/25/20 08:20 Pre-Op Diagnosis: LEFT INTERTROCHANTERIC HIP FRACTURE Post-Op Diagnosis: LEFT INTERTROCHANTERIC HIP FRACTURE I identified the patient and participated in the time-out.: Yes Procedure Operation Date: 01/25/20 08:20 Actual Procedures p Left Intramedullary Nail Placement(Left) - Randy Wills DO Surgeon Randy Wills DO Foiling Machine Operator Randy Plata PAC Estimated Blood Loss 50 Findings Consistent with Post-Op Diagnosis Specimens None Complications none Disposition Disposition: Recovery Room Indications Candace is a pleasant 79-year-old female who lives by herself with her cat. She was getting up out of a chair to use her walker to go to the bathroom when she fell directly onto her left hip. Fortunately, her daughter was with her and brought her to the emergency room. X-rays demonstrated a displaced intertrochanteric fracture of the left hip. After discussions at bedside, she elected to proceed with intramedullary nail fixation of her left hip. Description of Procedure On January 25, 2020 Candace was brought down from her hospital room to the preoperative holding area. The operative extremity was identified and signed. She had already received a preoperative antibiotic. She was then taken back to the operating room. A spinal anesthetic was placed. She was then transferred to the fracture table. Unfortunately the spinal anesthetic did not fully set up and she was put under a general anesthetic as well. The left hip was then brought out to traction. Fluoroscopic images showed anatomic reduction. Left hip was then prepped and draped in sterile fashion. A timeout was done. The patient and the operative extremity was properly identified. A small longitudinal incision was made just superior to the greater trochanter. Dissection was taken down through the fascia. A guidepin was placed at the tip of the greater trochanter and advanced towards the lesser trochanter. Appropriate placement was checked on orthogonal fluoroscopic images. A 17 mm opening reamer was then used to open the proximal femur. A ball-tipped guidewire was sent down the femoral canal. A 12 mm reamer was used to ream the femoral canal. A Synthes TFN nail was used. An 11 mm short nail was then advanced down the proximal femur. Appropriate alignment was checked on fluoroscopy. A small incision was made for the lag screw placement. Dissection was taken down to the lateral cortex. The helical blade guide sleeve was then advanced to the lateral cortex. A guidepin was then placed into the center center position of the femoral head. The guidepin measured to be 85 mm. The lateral cortex was then drilled and the helical blade was drilled. The final helical blade was then impacted into place. The helical blade was then locked and the fracture was compressed. A distal locking screw was then placed. I was able to get an excellent purchase with the distal locking screw. The outrigger was then removed. Final fluoroscopic images showed near anatomic alignment. The wounds were then irrigated. The deep fascia was closed with #1 Vicryl. Skin was closed with 2-0 Vicryl and peter. She was placed in a soft dressing. She was then extubated and transferred to a hospital bed. She was taken to the postanesthesia care unit in stable condition. She tolerated the procedure well. Randy Plata PA-C, was present for the entire procedure. He was critical for patient positioning, prepping, draping, retraction exposure, wound closure and application of sterile dressing. I attest to the content of the Intraoperative Record and any orders documented therein. Any exceptions are noted below.
--- NOTE | 2020-01-25 14:18 | Electrocardiogram Report ---
Test Reason : Blood Pressure : / mmHG Vent. Rate : 064 BPM Atrial Rate : 064 BPM P-R Int : 162 ms QRS Dur : 084 ms QT Int : 426 ms P-R-T Axes : 076 -66 078 degrees QTc Int : 439 ms Normal sinus rhythm Incomplete right bundle branch block Left axis deviation Abnormal ECG When compared with ECG of 31-DEC-2019 17:31, No significant change was found Confirmed by Dewayne Heath ([id number]) on 01/25/2020 2:17:49 PM Referred By: REFERRED SELF Confirmed By:Luiz Heath
--- NOTE | 2020-01-25 14:35 | XRay Report ---
XR hip LT min 2V CLINICAL HISTORY: Post-Operative implant position COMPARISON: None. DISCUSSION: Anatomic alignment post left hip nailing procedure. Expected soft tissue postoperative ch kailee IMPRESSION: Anatomic alignment post total left hip nailing procedure ACT 112: Negative or not required by law. The above report was generated using voice recognition software. It may contain grammatical, syntax or spelling errors. Electronically signed by: Ramon Bundy M.D. 01/25/2020 2:34 PM
--- NOTE | 2020-01-25 14:39 | Anesthesiology Progress Note ---
Date of Service January 25, 2020 Anesthesia Post Procedure Vital Signs Vital Signs: Temp Pulse Pulse Pulse Resp BP BP 01/25/20 14:35 36.6 C 72 13 138/70 01/25/20 14:25 74 14 153/85 H 01/25/20 14:15 77 19 145/75 H 01/25/20 14:09 36.5 C 76 16 132/80 01/25/20 11:36 36.8 C 68 20 174/79 H 01/25/20 07:21 36.7 C 67 18 131/69 01/25/20 03:41 36.8 C 68 18 118/62 01/25/20 01:54 142/84 H 01/25/20 00:00 36.5 C 74 16 173/96 H 01/24/20 23:09 68 01/24/20 23:02 68 16 195/88 H 01/24/20 21:44 75 20 201/111 H 01/24/20 20:14 36.8 C 85 18 215/107 H Pulse Ox Pulse Ox 01/25/20 14:35 97 01/25/20 14:25 97 01/25/20 14:15 98 01/25/20 14:09 98 01/25/20 11:36 99 01/25/20 07:21 100 01/25/20 03:41 91 01/25/20 01:54 01/25/20 00:00 92 94 01/24/20 23:09 01/24/20 23:02 99 01/24/20 21:44 95 01/24/20 20:14 85 L Pain Intensity Left Hip: Pain Intensity: 4 Transfer of Care Handoff Completed per policy Notes Mental Status: alert / awake / arousable and participated in evaluation Patient Amnestic to Procedure: Yes Nausea / Vomiting: adequately controlled Pain: adequately controlled Airway Patency, RR, SpO2: stable & adequate BP & HR: stable & adequate Hydration State: stable & adequate Neuraxial Anesthesia: was administered and sensory block resolved Anesthetic Complications: no major complications apparent and Pt Satisfied with anesthetic care
[2020-01-25] MEDS: D5W AND LACTATED RINGERS 1,000 ML IV SCH (15:21)
[2020-01-25] MEDS: SODIUM CHLORIDE 0.9% 1000ML 1,000 ML IV SCH (15:22)
[2020-01-25] MEDS: DOCUSATE SODIUM/SENNA 50/8.6MG TAB PO SCH (21:20)
[2020-01-25] MEDS ORDERED: cefTRIAXone SODIUM 1,000 MG in DEXTROSE 5% 50 ML IV SCH (22:00)
[2020-01-26] MEDS: SODIUM CHLORIDE 0.9% 1000ML 1,000 ML IV SCH ×2 (05:27→16:33)
[2020-01-26] MEDS: LEVOTHYROXINE SODIUM 75 MCG TABLET PO SCH (05:27)
--- NOTE | 2020-01-26 07:17 | Orthopedic Progress Note ---
Date of Service January 26, 2020 Assessment & Plan (1) Status post hip surgery: Overall she is doing well. She is not having much pain in the left hip. She will be setting by physical therapy today for ambulation and range of motion exercises. She will remain on Lovenox for 4 weeks until she is up and ambulating more. I will see her in the office in 2 weeks for staple removal. Full orthopedic discharge instructions were placed in the discharge summary. Present on Admission?: Yes Subjective Candace was seen and examined at bedside this morning. Overall she is doing fairly well. She is having too much pain in the left hip. She is awake, alert, and oriented. She has no new complaints. Physical Exam Musculoskeletal: On physical examination of the left hip, the dressing is clean and dry. Her leg lengths are equal. She has active dorsiflexion and plantarflexion of the left ankle. Results & Data ([facility]) Vital Signs (Past 12 Hours) Vital Signs Temp Pulse Pulse Resp BP Pulse Ox 01/26/20 04:14 36.7 C 74 18 119/68 100 01/26/20 00:00 69 01/25/20 23:59 36.7 C 71 20 118/68 100 01/25/20 19:48 36.8 C 74 20 121/71 100 Laboratory Results H & H 01/24/20 01/25/20 01/25/20 Range/Units 20:27 06:35 07:27 Hgb 13.0 Cancelled 11.7 L (12.0-16.0) g/dL Hct 41.2 Cancelled 35.9 L (37-47) % Coagulation 01/24/20 01/25/20 Range/Units 20:27 06:35 INR 1.1 1.1 (0.9-1.1) Diagnostic Findings Postoperative x-rays of the left hip show the fracture to be in anatomic alignment without any evidence of hardware complications. PG Care Time/CCT Total # of Minutes Spent Total Time Spent with Patient: Total time spent is greater than 50% in coordination of care (as documented) at patient's floor/unit and/or counseling patient: Coding Level of Care Code None Diagnoses Status post hip surgery Z98.890
[2020-01-26] MEDS: TIMOLOL MALEATE 0.25% OP SOLN 5 ML BTL OPB SCH (07:44)
[2020-01-26] MEDS: lisinopriL 40 MG TAB PO SCH (07:45)
[2020-01-26] MEDS: ENOXAPARIN INJ 30 MG/0.3 ML SYR SQ SCH (07:45)
[2020-01-26] MEDS: GABAPENTIN 100 MG CAP PO SCH ×3 (07:45→20:56)
[2020-01-26] MEDS: DOCUSATE SODIUM 100 MG CAP PO SCH (07:45)
[2020-01-26 09:37] LABS: Basophils # (auto) 0.02 K/uL (0-0.2); Basophils % (auto) 0.2 %; Eosinophils % (auto) 2.3 %; Hematocrit (blood only) 30.4 % (37-47); Hemoglobin 9.9 g/dL (12.0-16.0); Immature Granulocytes # (auto) 0.05 K/uL (0.00-0.02); Immature Granulocytes % (auto) 0.4 %; Lymphocytes % (auto) 5.3 %; Mean Corpuscular Hemoglobin 31.2 pg (25-34); Mean Corpuscular Hgb Conc 32.6 g/dL (32-36); Mean Corpuscular Volume 95.9 fL (80-100); Mean Platelet Volume 10.7 fL (7.4-10.4); Monocytes # (auto) 0.99 K/uL (0.11-0.59); Monocytes % (auto) 7.5 %; Neutrophils # (auto) 11.21 K/uL (1.4-6.5); Neutrophils % (auto) 84.3 %; Platelet Count 132 K/uL (130-400); RDW Coefficient of Variation 14.4 % (11.5-14.5); RDW Standard Deviation 50.6 fL (36.4-46.3); Red Blood Count 3.17 M/uL (4.2-5.4); White Blood Count 13.27 K/uL (4.8-10.8)
[2020-01-26] MEDS: MoRPHine SULFATE 2 MG/ML CARP IV PRN (09:58)
[2020-01-26] MEDS: CALCIUM 600MG + VIT D 400 IU TAB PO SCH ×2 (09:58→20:56)
[2020-01-26 10:05] LABS: BUN Creatinine Ratio 26.6 (10-20); Creatinine Clr Calc Pharmacy 42.7 ml/min; Est GFR (African American) 94.2; Est GFR (Non-African American) 81.3; Potassium 3.8 mmol/L (3.5-5.1)
[2020-01-26 10:07] LABS: Potassium 3.8 mmol/L (3.5-5.1)
[2020-01-26 10:08] LABS: Creatinine Clr Calc Pharmacy 41.5 ml/min; Est GFR (Non-African American) 78.5
--- NOTE | 2020-01-26 11:04 | Hospitalist Progress Note ---
Date of Service January 26, 2020 Assessment & Plan Admission and Anticipated Discharge Date Admission Date: January 24, 2020 Supervising Physician Co-Signing Physician Notes I also saw the patient concurrent with the resident physician and confirmed cummings portions of the history and physical examination. Upon examination, the patient is sleeping in bed but awakens to voice. She does not seem to be in any pain at the moment -although she really is only had pain with movement, not at rest. Intertrochanteric fracture Postop day #1 Urinary tract infection Has been switched to p.o. Keflex Mild leukocytosis this morning which I suspect is reactive Hypertension Zestril has been restarted 40 mg daily Hypothyroidism Biochemically and clinically euthyroid (TSH December 30 0.507) Continue home dose of Synthroid DVT prophylaxis with Lovenox Subjective Candace is seen at the bedside this morning. she reports she continues to have pain in her L hip improved, but requiring IV morphine. Pt expresses fear that APAP will not be able to control he rpain. Pain 2/10 at rest at HPI. Discussed goals were not to be pain free, but to rene ehe rpain manageable, tolerable, and functionally able to engage with physical therapy. Discussed side effects and risk of sedation, falls, confusion, and breathing effects with regular and increased used of opioids. Pt expresses transient understanding, but with poor insight and perseveration on anticipated pain. No other questions or concerns at time of visit. Review of Systems Review of Systems: Constitutional: Denies fever, chills, malaise. Endorses fatigue. Eyes: Denies vision change ENT: Denies cough, sore throat, ear pain Cardiovascular: Denies Chest pain, chest pressure, palpitations, extremity swelling Respiratory: Denies shortness of breath, sputum production, difficulty breathing Gastrointestinal: Denies abdominal pain, nausea, vomiting Genitourinary: Denies polyuria/dysuria today Musculoskeletal: Endorses left hip and right groin pain. Improved form prior, minimal pain at rest. Movement limited by pain in left lower extremity. Integumentary: Surgical dressings on R hip. Neurological: Denies headache, numbness, tingling Physical Exam Physical Exam: General:Alert and oriented to name, place. No acute distress. Appears thin, frail. HEENT: Atraumatic, normocephalic. Pulm: CTAB A&P. -wheezes, -rales, -rhonchi. Symmetrical chest rise. No increase work of breathing. No respiratory distress. Cardiac: RRR, -mrg. Radial pulses intact and symmetrical. Abdominal: Nontender, nondistended, soft. MSK: Surgical dressings on L proximal hip, clean, dry, and intact with icepack overlying hip. Pt endorses Patient focally tender to palpation over left trochanter Sensation to soft touch intact in toes bilaterally without asymmetry. PT pulses intact bilaterally without asymmetry. Ankle dorsiflexion/plantar flexion 4+/5 bilaterally. Pt hesitant to move L leg due to anticipated pain. Results & Data Results & Data ([facility]) Vital Signs (Past 12 Hours) Vital Signs Temp Pulse Pulse Resp BP Pulse Ox 01/26/20 07:42 37.6 C H 91 H 16 144/67 H 91 01/26/20 04:14 36.7 C 74 18 119/68 100 01/26/20 00:00 69 01/25/20 23:59 36.7 C 71 20 118/68 100 Resident Activity Tracking Resident Involvement: Resident Care Provided Care Provided: Adult [facility]
[2020-01-26] MEDS ORDERED: cephALEXin 500 MG CAP PO SCH (13:00)
[2020-01-26] MEDS ORDERED: TRAMADOL HCL 50 MG TABLET PO PRN (18:36)
[2020-01-26] MEDS ORDERED: MoRPHine SULFATE 2 MG/ML CARP IV PRN (18:37)
[2020-01-26] MEDS: DOCUSATE SODIUM/SENNA 50/8.6MG TAB PO SCH (20:56)
[2020-01-26] MEDS: cephALEXin 500 MG CAP PO SCH (20:56)
[2020-01-27] MEDS: SODIUM CHLORIDE 0.9% 1000ML 1,000 ML IV SCH (04:31)
[2020-01-27] MEDS: LEVOTHYROXINE SODIUM 75 MCG TABLET PO SCH (06:39)
[2020-01-27] MEDS: cephALEXin 500 MG CAP PO SCH (08:36)
[2020-01-27] MEDS: lisinopriL 40 MG TAB PO SCH (08:37)
[2020-01-27] MEDS: CALCIUM 600MG + VIT D 400 IU TAB PO SCH (08:37)
[2020-01-27] MEDS: DOCUSATE SODIUM 100 MG CAP PO SCH (08:37)
[2020-01-27] MEDS: ENOXAPARIN INJ 30 MG/0.3 ML SYR SQ SCH (08:37)
[2020-01-27] MEDS: GABAPENTIN 100 MG CAP PO SCH ×2 (08:37→13:12)
[2020-01-27] MEDS: TIMOLOL MALEATE 0.25% OP SOLN 5 ML BTL OPB SCH (08:38)
[2020-01-27 09:19] LABS: Basophils # (auto) 0.02 K/uL (0-0.2); Basophils % (auto) 0.2 %; Eosinophils # (auto) 0.29 K/uL (0-0.5); Eosinophils % (auto) 3.2 %; Hematocrit (blood only) 25.8 % (37-47); Hemoglobin 8.3 g/dL (12.0-16.0); Immature Granulocytes # (auto) 0.04 K/uL (0.00-0.02); Immature Granulocytes % (auto) 0.4 %; Lymphocytes # (auto) 0.68 K/uL (1.2-3.4); Lymphocytes % (auto) 7.5 %; Mean Corpuscular Hemoglobin 31.1 pg (25-34); Mean Corpuscular Hgb Conc 32.2 g/dL (32-36); Mean Corpuscular Volume 96.6 fL (80-100); Mean Platelet Volume 10.6 fL (7.4-10.4); Monocytes # (auto) 0.73 K/uL (0.11-0.59); Neutrophils # (auto) 7.35 K/uL (1.4-6.5); Neutrophils % (auto) 80.7 %; Platelet Count 104 K/uL (130-400); RDW Coefficient of Variation 14.7 % (11.5-14.5); RDW Standard Deviation 52.1 fL (36.4-46.3); Red Blood Count 2.67 M/uL (4.2-5.4); White Blood Count 9.11 K/uL (4.8-10.8)
--- NOTE | 2020-01-27 09:51 | Discharge Summary ---
Date of Service January 27, 2020 Admission HPI Per Admitting Provider Candace oMon is a 79 y/o female with past medical hx of osteoporosis w/compression fractures of the thoracic spine, cervical dystonia and depression/anxiety, HTN, poor appetite, physical deconditioning who presents to [facility] ED for CC of Fall. She notes fall occurred about 6:45pm. She was getting up from sitting to go to bathroom. She states that she uses a walker and her walker slid out from under her. She fell onto her left side. She was unable to get up. Her two daughters were at patient's home and helped her up. She denied any pro-dromal symptoms, no chest pain, dizziness/lightheadedness. She denies any other injury. Did not hit her head, no acute neck injury, no knee or ankle or upper extremity injury. She notes she does live alone with her cat. She reports that she last had something to drink was about 5pm; she cannot recall the last time she ate food. She denies any numbness or tingling in her lower extremities. She points to location of pain to her left hip. Her pain was improved with morphine 2mg IV x1 in ED. She had a UTI concerning for infection and notes some urinary frequency but no dysuria. Her daughter is with her at bedside and is able to help as historian. Patient is a vague historian. Patient and daughter acknowledge that patient has a living will and is a DNR/DNI. She is not on any current anti- coagulation. She was started on Rocephin IV for UTI. She also had pulse ox of 87% which was corrected with NC O2. No reported smoking history, does not wear O2 at home. No respiratory complaints of cough or dyspnea. Admission Exam Per Admitting Provider Review of Systems: All systems reviewed & are unremarkable except as noted in HPI & below Constitutional: no fever and no chills Eyes: no diplopia and no spots in vision Ear, Nose, Mouth, Throat: + sore throat (resolved); no nasal congestion, no epistaxis and no facial pain Respiratory: no cough and no dyspnea Cardiovascular: no chest pain and no palpitations Gastrointestinal: no abdominal pain, no nausea and no vomiting Genitourinary: as per Subjective / HPI; no dysuria Musculoskeletal: as per Subjective / HPI and + joint pain (left hip) Integumentary: no rash and no lesions Neurologic: + falls; no numbness and no headache(s) Principal Diagnosis Hip fracture, UTI Discharge Exam General:Alert and oriented to name, place. No acute distress. Appears thin, frail. HEENT: Atraumatic, normocephalic. Pulm: CTAB A&P. -wheezes, -rales, -rhonchi. Symmetrical chest rise. No increase work of breathing. No respiratory distress. Cardiac: RRR, -mrg. Radial pulses intact and symmetrical. Abdominal: Nontender, nondistended, soft. MSK: Surgical dressings on L proximal hip, clean, dry, and intact with icepack overlying hip. Focally tender to palpation over left trochanter Sensation to soft touch intact in toes bilaterally without asymmetry. PT pulses intact bilaterally without asymmetry. Ankle dorsiflexion/plantar flexion 4+/5 bilaterally. Pt hesitant to move L leg due to anticipated pain, but in no pain at rest. Discharge Data Allergies Allergy/AdvReac Type Severity Reaction Status Date / Time No Known Allergies Allergy Verified 01/24/20 21:54 Consultations 01/24/20 21:36 ED Decision to Admit Stat 01/24/20 23:09 Consult Anesthesiology Routine Consult Case Management - Discharge Planning Routine Consult Orthopedic Surgery Routine Procedures Performed Operation Date: 01/25/20 08:20 Actual Procedures p Left Intramedullary Nail Placement(Left) - Randy Wills DO Ordered Studies 01/25/20 13:00 FL femur LT 2V Routine FL fluoroscopy <1hr Routine Hospital Course (1) Hip fracture, intertrochanteric: Cadnace Moon is a 79 y/o female with past medical hx of osteoporosis w/compression fractures of the thoracic spine, cervical dystonia and depression/anxiety, HTN, poor appetite, physical deconditioning who presents to [facility] ED for CC of Fall. To do as outpatient: 1. Complete 1 week of Keflex treatment for UTI 2. Complete 1 month of Lovenox DVT prophylaxis for hip fracture status post pinning 3. Rehab 4. Follow-up with orthopedics for suture removal 5. Consider addition of bisphosphonate therapy Left intertrochanter and fracture with right pubic ring fracture 2/2 fall Candace is an 79-year-old female with a past medical history of fractures and osteoporosis who presented with severe left hip pain following a fall at home due to weakness. She is found to have a UTI on admission which was thought to contribute to acute weakness on top of chronic deconditioning. X-ray of her hip showed an intertrochanteric fracture of the left hip in addition to a small fracture of the right symphysis pubis. There was no evidence of dislocation. Patient reported an additional 2 falls in the last month. Orthopedics was consulted, and she underwent surgical intervention with intertrochanteric nailing without complication. She was seen by physical therapy following procedure who recommended discharge and further strength therapy at custodial facility. Her initial pain was controlled with morphine IV which was converted to tramadol 50 mg. Patient expressed severe anxiety around her pain and requested anticipatory narcotic dosing, discussed that the goals were to reduce her pain to allow her to be functional and engaged with physical therapy while setting goals and expectation that did not necessarily include being pain- free as this would likely lead to narcosis and harm. Patient was noted to have some memory deficit and age-related cognitive decline. Plan of care was discussed with her and her daughter who was present at bedside, who are agreeable to plan. She was discharged to custodial for rehab and further care. She will require 4 weeks of Lovenox therapy per orthopedics. Urinary tract infection On admission patient had an infected appearing UA. Sample was sent for culture and returned pansensitive E. coli. She received 1 day of empiric Rocephin prior to conversion to Keflex which was to be continued for total 7-day course with dose reduced for renal function to 500 mg twice daily. She is not having urinary symptoms at time of discharge. Anx/Dep BuSpar twice daily was continued for anxiety. Osteoporosis There is a history of osteoporosis with multiple fractures. DEXA records were not able to be obtained, but her hip fracture as noted above represents a fragility fracture, and she denies having been on bisphosphonate therapy previously. She was placed on calcium and vitamin D supplementation, and should be evaluated for initiation of bisphosphonates as outpatient. She was instructed to continue calcium and vitamin D supplementation and to follow-up with her PCP regarding bisphosphonates as outpatient. HTN Candace has a history of hypertension on lisinopril. Her lisinopril was held perioperatively, and then resumed postoperatively. She had reasonable blood pressure control when her pain was adequately controlled and had hydralazine on- call as needed Hypothyroid - [employer] RECEPTIONIST synthroid 75mcg PO was continued BMI of 15.8. Candace was noted to have progressive ambulatory dysfunction weakness, and appeared frail on exam. She has a history of slow progressive weight loss. Dietary consult was ordered, and it was recommended she take boost supplementation. She should continue boost supplementation, and if she continues to lose weight should be evaluated for the initiation of appetite stimulants although this would have to be weighed against the risk of sedation given her multiple falls and weakness. DVT prophylaxis Candace was continued on Lovenox 30 mg subcu for DVT prophylaxis. Per Ortho she should continue DVT prophylaxis for 4 weeks following surgery. She was discharged to continue Lovenox 30 mg subcu. She did not show any signs of DVT during admission. Total Time Total Time Spent Total Time Spent (In Minutes): I spent 25 minutes in seeing the patient, reviewing data, and documenting. Discharge Plan Discharge Items Patient Disposition: Transfer [facility] Reason For Visit: LEFT INTERTROCHANTERIC HIP FRACTURE Discharge Diagnosis: Left hip fracture status post surgical pinning Activity: Per Instructions section Non-emergency contact: Primary Care Provider and Surgeon Call non-emergency contact if: you have any medication questions, your symptoms worsen, your pain is not controlled, your pain is worsening, your pain is unusual for you and you have a fever Follow-up/Referrals: Gonzalo Johnson III, MD [Primary Care Provider] - Diet: Regular Addtl Attending Provider Instructions: You have been seen in the hospital for hip fracture after a fall. You were also found to have a urinary tract infection that contributed to your weakness. You have been treated with antibiotics, and had surgery for your hip. Due to your hip fracture you will require additional strength training and rehab, you being discharged to a skilled rehab facility for further care. You have had medications prescribed as noted below. You have had a pain medication prescribed, tramadol. Please take tramadol 50 mg every 4-6 hours as needed for pain. Your fracture will take at least 6 weeks to heal, and your pain should gradually improve over that time. As discussed the goal is to reduce your pain to allow you to be functional and engage in therapy services, although you will likely still have some discomfort for the next few weeks even with pain medication. Tramadol is a narcotic medication, and may make you sleepy, confused, or dizzy and can increase your risk of future falls. Please minimize the use of this medication where possible. You have been prescribed a blood thinner, Lovenox, for 4 weeks due to your hip fracture. Please take Lovenox 40 mg daily via injection for 4 weeks. You have been prescribed an antibiotic, Keflex. Please take Keflex 500 mg twice daily for 5 additional days to complete 1 week of treatment including that received while in the hospital. Please take all 5 days of the antibiotic even if you feel better before then. This medication may cause an upset stomach, it may help to take a probiotic along with this medication. If you develop any signs of allergy, including rash, difficulty breathing, wheezing, or other new or concerning symptoms please contact your care provider at the rehab facility or have 911 contacted to transfer you to the emergency department for reevaluation. A follow-up visit will be scheduled for you with your primary care provider, Dr. Johnson. This will be organized by the rehab facility, you should be seen within 1-2 weeks. If you do not hear confirmation of an appointment, or need to change your appointment, please call his office at [phone]. Follow-up with Dr. Wills's PA (Randy Plata) 2-3 weeks after your day of surger y. He will remove your noah and answer any questions. If you have any additional questions or concerns, Dr Wills is usually in the office at the same time and will be available An appointment was probably scheduled when you signed-up for surgery in the office. If you have any questions call If you develop any new or worsening symptoms including fever, chills, sweats, chest pain, chest pressure, difficulty breathing, uncontrolled nausea/vomiting, rash, wheezing, passing out or nearly passing out, bleeding, black/bloody bowel movements, or other new or concerning symptoms please call your primary care physician, or call [phone] for re-evaluation in the emergency department if you are very concerned. ORTHOPEDIC INSTRUCTIONS Hip Fracture Activity and Therapy Recommendations: 1. You were shown a series of exercises in the hospital. Do these exercises three times each day if you are able. 2. Get up and walk several times each day if you are capable. Make sure you have assistance is needed. For the first four weeks, try not to stand or walk for more than one hour at a time. If you do stand or walk for more than one hour, you will not hurt anything, but your leg will likely swell. 3. As you feel comfortable, you may change from the walker or crutches to a cane and then to independent walking if you are able. Please be safe. Medications: 1. Narcotic You will likely be sent from the hospital with the narcotic pain medication that worked best throughout your stay. 2. Lovenox You will likely be required to take Lovenox daily for 4 weeks after discharge from the hospital 3. Other medications may be given for specific circumstances. If you have any questions, please call the office at [phone]. 4. Resume previous home medications unless otherwise instructed TEDs/Elastic Stockings: The white elastic stockings help limit swelling and prevent blood clots from forming in your legs. The more you wear them, the more they work. Wear them for six weeks. Dressing Care: Noah can be open to air as long as the incisions are not draining. If the incisions are draining or if the noah are getting caught on your clothes then please cover the noah with dry gauze. Change the dressings as necessary to keep the incision as dry as possible Showering: You may shower 5 days from the day of surgery as long as the incisions are not draining. Do not soak the incision. Let soapy water run over the noah and pat them dry. Things To Watch For: 1. Drainage from the incision site that occurs more than one week after your surgery. 2. Increased redness at the incision site. 3. Fever above 102 degrees Fahrenheit. 4. Unusual chest pain or shortness of breath. 5. Call [facility] at with any of the above problems Pending Studies at Discharge: No Stand-Alone Forms: My [facility] Skilled Items Patient informed of condition?: Yes DNR: Yes Discharge Level of Care: Skilled Communicable Disease: No Discharge Prognosis: Improving Lines: None Urinary Catheter: No Medications and DC Order Prescriptions: New cephalexin 500 mg Capsule 500 mg PO BID 5 Days Qty: 10 RF: 0 enoxaparin [Lovenox] 30 mg/0.3 mL Syringe 30 mg subcut Q24H 28 Days Qty: 8.4 RF: 0 acetaminophen 325 mg Tablet 650 mg PO Q6H PRN (Reason: fever) Qty: 1 RF: 0 tramadol 50 mg Tablet 50 mg PO Q4H PRN (Reason: pain (scale score 7-10)) 14 Days Qty: 60 RF: 0 Continued buspirone 5 mg tablet 5 mg PO BID PRN (Reason: Anxiety) Qty: 180 RF: 3 lisinopril 40 mg tablet 40 mg PO QAM Qty: 90 RF: 3 celecoxib [Celebrex] 200 mg capsule 200 mg PO DAILY Qty: 90 RF: 3 levothyroxine 75 mcg tablet 75 mcg PO DAILY Qty: 90 RF: 3 calcium carbonate-vitamin D3 [Calcium 600 with Vitamin D3] 600 mg(1,500mg) - 500 unit capsule 2 cap PO HS RF: 0 docusate sodium [Stool Softener] 100 mg Capsule 100 mg PO DAILY RF: 0 ibuprofen [Advil] 200 mg Tablet 400 mg PO Q6H PRN (Reason: Pain) RF: 0 timolol maleate 0.5 % drops 1 drp OPB QAM RF: 0 Restasis 0.05 % Dropperette 1 drp OPB Q12H PRN (Reason: Dry Eye(S)) RF: 0 gabapentin [Neurontin] 100 mg capsule 100 mg PO TID RF: 0 Discharge Orders: Discharge Order (Routine); Ordered 01/27/20 Ordered By: Misael Krueger Admission Data Admit Date/Time: 01/24/20 22:12 Attending Provider: Orlando Stewart Admit Provider: Sridhar White Primary Care Provider: Gonzalo Johnson III Other Providers: Reshma Lu ; Angela Escobar ; Stef Lu ; [facility] Other Interventions: Discharge Summary Assessment (RN) Last Done: 01/27/20 13:18 DC Date/Time DO NOT enter until pt leaves facility: 01/27/20 16:43 Supervising Physician Co-Signing Physician Notes I also saw the patient concurrent with the resident physician and confirmed cummings portions of the history and physical examination. Upon examination, the patient is sleeping but easily awakens. She is much more oriented than she was yesterday. She reports that her pain is better controlled. She understands the need for inpatient redilatation and is comfortable with the idea of transfer to another facility for this care later today. I agree with the impression and plan as well as the follow-up items as documented in the resident documentation Resident Activity Tracking Resident Involvement: Resident Care Provided Care Provided: Adult [facility]
== END 2020-01-27 16:43 | DRG 481 ==
LOC: ED 19:47 → 2W 22:12 → SUATTDRO 22:12 → 2W 23:02

== ENCOUNTER 2023-02-16 07:36 | Inpatient (IN) ==
--- NOTE | 2023-02-16 07:51 | Emergency Department Note ---
Impression & Plan Closed left femoral fracture, Closed fracture of left tibial plateau, Acute UTI (urinary tract infection), Ground-level fall, Effusion, left knee ED Provider Note Name: EVELYN UGARTE Age: 82 Sex: F Arrives Via: Ambulance Informant: Patient, family, EMS ED Provider: Trevin Roche MD Chief Complaint: Left knee pain Impression: As per impressions above Medical Decision Makin-year-old female with extensive past medical history arrives for evaluation of acute left knee pain. Patient tripped and fell this morning landing on her left knee. Large effusion on evaluation and moderate pain on range of motion. X- rays of the knee femur and pelvis revealed distal condyle fracture of the left femur. CT reveals comminuted nondisplaced fracture along with tibial plateau fracture. Given the amount of swelling and discomfort I think hospitalization reasonable for orthopedics evaluation and discussion on PT OT placement etc. Laboratory work-up is benign. UA is consistent with UTI. This may have increased her risk of falling. She has no headache, neck pain or other injuries. Do not feel that CT of the head is indicated at this time as she will be monitored in the hospital. Rocephin given for UTI management. Hospitalist consulted for further management. Patient and daughter are comfortable with this plan. Prior Medical Record and Triage/Nursing Notes reviewed by Me External chart reviewed by me including previous hospitalization records Differentials:Contusion, sprain, hemarthrosis, knee fracture, pelvis fracture, femur fracture, other injuries, mechanical fall, nonmechanical fall amongst many other pathologies considered Vital Signs: reviewed and remarkable for hypertensive on arrival - patient admits she did not take her medicines today - Interventions: Fentanyl IV, Rocephin 2 g IV Labs:Reviewed and remarkable for UA consistent with UTI. Laboratory work-up otherwise reviewed and unremarkable Imaging: As per my interpretation x-ray of the left knee. Distal medial condyle fracture of the femur. As per my interpretation x-ray of the left femur. Distal medial condyle fracture with no shaft or femur head fracture As per my interpretation x-ray of the pelvis. No fracture nor dislocation appreciated. CT of the left knee as per my informal interpretation reveals distal femur fracture and tibial plateau fracture with lipohemarthrosis. Confirmed by radiologist Consults:Multiple discussions with radiologist regarding x-ray findings and need for CT as well as the findings on the CT. [facility] hospitalist consulted for further management and hospitalization. Dr. Bacon of orthopedic service notes place patient in knee immobilizer and he will follow along as inpatient Plan: Disposition:Hospitalization. Condition: Good History of Present Illness:82-year-old female arrives for evaluation of left knee pain. Patient notes she had gotten up and got dressed this morning when she fell on her left knee. She notes she tripped. She had no loss of consciousness lightheadedness, chest pain, palpitations or any preceding symptoms. She says it was a mechanical fall. Landed on left knee. Increasing swelling and pain since then. Hurts to walk. Pain with range of motion of left knee. Denies specific left hip pain but states her knee hurts so bad it is tough to tell. No medications prior to arrival. States she has not taken her blood pressure medicines this morning. Notes previous left hip fracture. Past History: Hypothyroidism, osteoporosis, anxiety depression, hypertension, calorie malnutrition, pressure ulcers, compression fractures Home Medications: See below, patient denies aspirin, Plavix, other anticoagulant use. Allergies: No known drug allergies Vitals:Blood Pressure: 213/114, Pulse 92, RR 16, T 36.8C, O2 97% on RA Physical Exam: GENERAL: Patient is elderly/frail appearing and in no acute distress. Mildly anxious HEAD: AT/NC NECK: No cervical midline TTP RESPIRATORY: No dyspnea. Clear to auscultation and equal bilaterally. No wheeze, no rhonchi. CARDIOVASCULAR: Regular rate and rhythm.No murmurs, rubs, gallops appreciated. EXTREMITIES: Normal motion all extremities, no cyanosis, no edema. Moderate effusion left knee with mild pain on range of motion. No tenderness palpation left hip or pain with range of motion of left hip or ankle. Good pulses distally. NEUROLOGIC: Alert and oriented, no focal neurologic deficit appreciated SKIN: No rash, no jaundice, no diaphoresis. PSYCH: Mildly anxious GCS: 15 ED Course: Times/Reassessments: Patient is much more comfortable after some IV pain meds after agreeing to take them. She is agreeable to hospitalization Trevin Roche MD Past Med/Surg History Medical History (Updated 02/16/23 @ 13:22 by Trevin Roche MD) Anemia Anxiety Bilateral lower extremity edema Cancer COLON POLYP REMOVED Cellulitis Closed intertrochanteric fracture of left hip Fracture of distal end of left femur GERD (gastroesophageal reflux disease) Hyperlipidemia Hypothyroidism Non-traumatic compression fracture of thoracic vertebra Osteoarthritis Peripheral neuropathy Pressure sore on buttocks Surgical History History of bilateral tubal ligation History of cataract surgery RT History of colonoscopy History of open reduction and internal fixation (ORIF) procedure History of tonsillectomy and adenoidectomy History of tooth extraction Family History Father Bone cancer Mother Hypertension Myocardial infarction Social History Smoking Status: Never smoker Second Hand Exposure: Yes; Do You Dip or Chew Tobacco: No; Hx Alcohol Use: No Hx Substance Use: No Preferred Language: Hungarian Communication Ability: Effective Communication Ability Comment: Pt [place] Visual Impairment: No Limitations Bounty Trapper Required: No Beliefs That Will Affect Care: None marital status: / Current Living Situation: Family Current Living Situation Comment: daughter has been living with patient since she fell in January How many Children do You have: 2 Other Information That Helps Us Care for You: No Feels Safe at Home: Yes Safety Concerns: Feels Safe At This Time Childhood Exposure to Second-Hand Smoke: No Diet: regular caffeine: Yes during the past year weight has: remained stable Physical Activity Frequency: 1-2 Times per Week Seatbelt Use: always Sunscreen Use: No Assistive Devices: Glasses and Walker Allergies Allergies Allergy/AdvReac Type Severity Reaction Status Date / Time No Known Allergies Allergy Verified 03/12/22 10:22 Home Meds Home Medications Medication Instructions Recorded Confirmed cyclosporine 0.05 % eye drops in a 1 drp OPB Q12H PRN Dry Eye(S) 09/10/19 02/16/23 dropperette (Restasis) timolol maleate 0.5 % eye drops 1 drp OPB QAM 09/10/19 02/16/23 calcium carbonate 600 mg-vitamin 1 cap PO HS 01/10/22 02/16/23 D3 12.5 mcg (500 unit) capsule (Calcium 600 with Vitamin D3) duloxetine 20 mg capsule,delayed 20 mg PO DAILY 02/16/23 02/16/23 release ketoconazole 2 % shampoo See Rx Instructions topical Q14D 02/16/23 02/16/23 PRN Other levothyroxine 75 mcg tablet 75 mcg PO DAILY 02/16/23 02/16/23 Previous Rx's Medication Instructions Recorded acetaminophen 325 mg tablet 650 mg PO Q6H PRN fever #1 tab 01/27/20 cyclobenzaprine 10 mg tablet 10 mg PO TID PRN muscle spasm #30 07/31/21 tabs tramadol 50 mg tablet 50 mg PO BID PRN pain #60 tabs 08/14/21 gabapentin 100 mg capsule 100 mg PO TID #270 caps 10/16/21 (Neurontin) celecoxib 200 mg capsule (Celebrex) 200 mg PO DAILY #90 caps 06/15/22 lisinopril 40 mg tablet 40 mg PO QAM #90 tabs 06/15/22 Results & Data (ED) Vital Signs Vital Signs - 24 hr 02/16/23 07:40 02/16/23 07:44 Temperature 36.8 C 36.8 C Temperature Source Oral Oral Pulse Rate 92 H Pulse Rate [Apical] 92 H Pulse Rhythm Regular Pulse Rhythm [Apical] Regular Pulse Strength Normal Pulse Strength [Apical] Normal Respiratory Rate 16 16 Respiratory Effort / Characteristics Non-Labored Non-Labored Respiratory Depth Normal Normal Respiratory Pattern Regular Regular Blood Pressure 213/114 H Blood Pressure [Right Arm] 213/114 H Blood Pressure Mean 147 Blood Pressure Mean [Right Arm] 147 Pulse Oximetry 97 97 Oxygen Delivery Method Room Air Room Air Sepsis Recent Fever Within 48 Hours No Sepsis New/Unexplained Change in Mental Status No Sepsis Action Taken by Nursing No Action Required Laboratory Data 02/16/23 08:59 02/16/23 08:59 Lab Results 02/16/23 02/16/23 Range/Units 08:59 08:59 WBC 8.53 (4.8-10.8) K/ul RBC 4.52 (4.20-5.40) M/uL Hgb 14.9 (12.0-16.0) g/dl Hct 45.2 (37.0-47.0) % MCV 100.0 (80.0-100.0) fL MCH 33.0 (25.0-34.0) pg MCHC 33.0 (32.0-36.0) g/dL RDW Std Deviation 49.1 H (36.4-46.3) fL RDW Coeff of Ralf 13.2 (11.5-14.5) % Plt Count 173 (130-400) K/uL MPV 10.4 (9.4-12.4) fL Immature Gran % (Auto) 0.2 % Neut % (Auto) 84.2 % Lymph % (Auto) 6.7 % Hardin % (Auto) 6.7 % Eos % (Auto) 1.6 % Baso % (Auto) 0.6 % Neut # (Auto) 7.18 H (1.40-6.50) K/uL Lymph # (Auto) 0.57 L (1.2-3.4) K/uL Hardin # (Auto) 0.57 (0.11-0.59) K/uL Eos # (Auto) 0.14 (0-0.50) K/uL Baso # (Auto) 0.05 (0-0.2) K/uL Immature Gran # (Auto) 0.02 (0.01-0.20) K/uL Sodium 141 (136-145) mmol/L Potassium 4.2 (3.5-5.1) mmol/L Chloride 104 (98-107) mmol/L Carbon Dioxide 33 H (21-32) mmol/L Anion Gap 4 (3-11) BUN 28 H (6-23) mg/dl Creatinine 0.83 (0.6-1.2) mg/dl Est Cr Clr Drug Dosing 32.5 ml/min Est GFR ( Amer) 75.1 ml/min Est GFR (Non-Af Amer) 64.8 ml/min BUN/Creatinine Ratio 33.7 H (10-20) Glucose 103 H (70-99(Fasting)) mg/dl Calcium 9.7 (8.6-10.3) mg/dl Magnesium 2.1 (1.7-2.4) mg/dl Administered Medications Acetaminophen (Acetaminophen 500 Mg Tab) 1,000 mg PO Q8H PRN PRN Reason: Mild Pain (Scale 1, 2, 3) Stop: 03/18/23 12:59 Last Admin: 02/16/23 12:54 Dose: 1,000 mg Documented By: NIRANJAN Discontinued Medications Hydromorphone HCl (Hydromorphone Inj 0.5 Mg/0.5 Ml Syr) 0.25 mg IV NOW STA Stop: 02/16/23 10:01 Last Admin: 02/16/23 10:27 Dose: 0.25 mg Documented By: AP Ceftriaxone Sodium (Rocephin) 2,000 mg in 70 mls @ 140 mls/hr IV NOW STA Stop: 02/16/23 11:56 Last Infusion: 02/16/23 11:55 Dose: 0 mls/hr Documented By: Admin: 02/16/23 11:41 Dose: 140 mls/hr Documented By: SAMMY Lisinopril (Lisinopril 40 Mg Tab) 40 mg PO ONE ONE Stop: 02/16/23 11:28 Last Admin: 02/16/23 11:48 Dose: 40 mg Documented By: SAMMY Ondansetron HCl (Ondansetron Inj 2 Mg/Ml 2 Ml Vial) 4 mg IV NOW STA Stop: 02/16/23 10:01 Last Admin: 02/16/23 10:27 Dose: 4 mg Documented By: AP Imaging Data Radiologist's Impression: Femur X-Ray 02/16/23 07:51 SINGLE VIEW PELVIS; 2 VIEWS LEFT FEMUR CLINICAL HISTORY: Fall. Left leg injury. FINDINGS: An AP view of the pelvis with AP and crosstable lateral views of the left femur are obtained. Comparison is made to studies dated 01/25/2020 and 05/03/2020. The skeletal structures are osteopenic. No acute fracture is seen involving the hips or bony pelvis. There is chronic posttraumatic deformity of the left proximal femur with intertrochanteric and intramedullary nails in place. There is a fracture of the distal femoral metaphysis with associated lipohemarthrosis of the knee. [id number] arthritic change and joint space narrowing is seen in the hips. Sclerotic change is noted in the sacroiliac joints. Lumbosacral spondylosis is partially imaged. Mild soft tissue swelling is suggested in the distal thigh. IMPRESSION: 1. No acute fracture is seen involving the hips or bony pelvis. 2. Nondisplaced fracture of the distal femoral metaphysis with associated lipohemarthrosis of the knee joint. 3. There is chronic posttraumatic deformity and postsurgical change in the left proximal femur. Electronically signed by: Arnol Gudino M.D. 02/16/2023 8:54 AM Knee X-Ray 02/16/23 07:51 LEFT KNEE 2 VIEWS CLINICAL HISTORY: Fall. Left knee injury. FINDINGS: AP and crosstable lateral views of the left knee are obtained. Correlation is made with radiographs of the left femur dated 05/03/2020. The skeletal structures are osteopenic. There is a nondisplaced fracture of the distal femoral metaphysis with associated joint effusion/lipohemarthrosis of the knee. No additional acute fracture is clearly seen. There is mild tricompartmental degenerative joint space narrowing. Mild soft tissue swelling is seen in the distal thigh. IMPRESSION: Distal femoral fracture with associated lipohemarthrosis. Electronically signed by: Arnol Gudino M.D. 02/16/2023 8:57 AM Pelvis X-Ray 02/16/23 07:51 SINGLE VIEW PELVIS; 2 VIEWS LEFT FEMUR CLINICAL HISTORY: Fall. Left leg injury. FINDINGS: An AP view of the pelvis with AP and crosstable lateral views of the left femur are obtained. Comparison is made to studies dated 01/25/2020 and 05/03/2020. The skeletal structures are osteopenic. No acute fracture is seen involving the hips or bony pelvis. There is chronic posttraumatic deformity of the left proximal femur with intertrochanteric and intramedullary nails in place. There is a fracture of the distal femoral metaphysis with associated lipohemarthrosis of the knee. [id number] arthritic change and joint space narrowing is seen in the hips. Sclerotic change is noted in the sacroiliac joints. Lumbosacral spondylosis is partially imaged. Mild soft tissue swelling is suggested in the distal thigh. IMPRESSION: 1. No acute fracture is seen involving the hips or bony pelvis. 2. Nondisplaced fracture of the distal femoral metaphysis with associated lipohemarthrosis of the knee joint. 3. There is chronic posttraumatic deformity and postsurgical change in the left proximal femur. Electronically signed by: Arnol Gudino M.D. 02/16/2023 8:[address] 02/16/23 08:50 CT SCAN OF THE LEFT KNEE WITHOUT IV CONTRAST CLINICAL HISTORY: Fall with left knee injury. COMPARISON STUDY: Radiographs of left knee dated 02/16/2023. TECHNIQUE: CT scan of the left knee is performed from the distal femur to the proximal tibia and fibula. Images are reviewed in the axial, sagittal, and coronal planes. IV contrast was not administered for this examination. A dose lowering technique was utilized adhering to the principles of ALARA. CT DOSE: 330.12 mGy.cm FINDINGS: The skeletal structures are heterogeneously osteopenic. There is a comminuted nondisplaced fracture of the distal femoral metaphysis with intra-a rticular extension. Fracture is best seen on coronal image #30 and axial image #103. There is associated joint effusion with lipohemarthrosis. There is also likely nondepressed impaction type tibial plateau fracture (axial image #166 and coronal image #24). This is difficult to assess due to the degree of demineralization. The proximal fibula is intact. There is mild tricompartmental degenerative joint space narrowing. Mild soft tissue edema is seen around the knee. There is generalized atrophy of the regional musculature. There is asymmetric atrophy of the medial head of the gastrocnemius. IMPRESSION: 1. Comminuted nondisplaced fracture of the distal femoral metaphysis with intra- articular extension and associated lipohemarthrosis. 2. There is also likely a nondepressed impaction type fracture of the tibial plateau. This is difficult to assess due to the degree of demineralization. ACT 112: Negative or not required by law. Electronically signed by: Arnol Gudino M.D. 02/16/2023 9:58 AM Discharge Plan Visit Data Chief Complaint: Fall Stated Complaint: FALL, L KNEE PAIN ED Provider: Trevin Roche Discharge Problem: Closed left femoral fracture, Closed fracture of left tibial plateau, Acute UTI (urinary tract infection), Ground-level fall, Effusion, left knee Patient Disposition: Admitted As Inpatient Discharge Instructions Interventions: ED Discharge Assessment Last Done: 02/16/23 11:53
--- NOTE | 2023-02-16 08:57 | XRay Report ---
SINGLE VIEW PELVIS; 2 VIEWS LEFT FEMUR CLINICAL HISTORY: Fall. Left leg injury. FINDINGS: An AP view of the pelvis with AP and crosstable lateral views of the left femur are obtaine d. Comparison is made to studies dated 01/25/2020 and 05/03/2020. The skeletal structures are osteopen ic. No acute fracture is seen involving the hips or bony pelvis. There is chronic posttraumatic defor mity of the left proximal femur with intertrochanteric and intramedullary nails in place. There is a fracture of the distal femoral metaphysis with associated lipohemarthrosis of the knee. Uygm-xk-hpmee ate arthritic change and joint space narrowing is seen in the hips. Sclerotic change is noted in the sacroiliac joints. Lumbosacral spondylosis is partially imaged. Mild soft tissue swelling is suggeste d in the distal thigh. IMPRESSION: 1. No acute fracture is seen involving the hips or bony pelvis. 2. Nondisplaced fracture of the distal femoral metaphysis with associated lipohemarthrosis of the kne e joint. 3. There is chronic posttraumatic deformity and postsurgical change in the left proximal femur. Electronically signed by: Arnol Gudino M.D. 02/16/2023 8:54 AM
--- NOTE | 2023-02-16 08:58 | XRay Report ---
LEFT KNEE 2 VIEWS CLINICAL HISTORY: Fall. Left knee injury. FINDINGS: AP and crosstable lateral views of the left knee are obtained. Correlation is made with rad iographs of the left femur dated 05/03/2020. The skeletal structures are osteopenic. There is a nondi splaced fracture of the distal femoral metaphysis with associated joint effusion/lipohemarthrosis of the knee. No additional acute fracture is clearly seen. There is mild tricompartmental degenerative j oint space narrowing. Mild soft tissue swelling is seen in the distal thigh. IMPRESSION: Distal femoral fracture with associated lipohemarthrosis. Electronically signed by: Arnol Gudino M.D. 02/16/2023 8:57 AM
[2023-02-16 09:20] LABS: Basophils # (auto) 0.05 K/uL (0-0.2); Basophils % (auto) 0.6 %; Eosinophils # (auto) 0.14 K/uL (0-0.50); Eosinophils % (auto) 1.6 %; Hematocrit (blood only) 45.2 % (37.0-47.0); Hemoglobin 14.9 g/dl (12.0-16.0); Immature Granulocytes # (auto) 0.02 K/uL (0.01-0.20); Immature Granulocytes % (auto) 0.2 %; Lymphocytes # (auto) 0.57 K/uL (1.2-3.4); Lymphocytes % (auto) 6.7 %; Mean Platelet Volume 10.4 fL (9.4-12.4); Monocytes # (auto) 0.57 K/uL (0.11-0.59); Monocytes % (auto) 6.7 %; Neutrophils # (auto) 7.18 K/uL (1.40-6.50); Neutrophils % (auto) 84.2 %; Platelet Count 173 K/uL (130-400); RDW Coefficient of Variation 13.2 % (11.5-14.5); RDW Standard Deviation 49.1 fL (36.4-46.3); Red Blood Count 4.52 M/uL (4.20-5.40); White Blood Count 8.53 K/ul (4.8-10.8)
[2023-02-16 09:31] LABS: BUN Creatinine Ratio 33.7 (10-20); Calcium 9.7 mg/dl (8.6-10.3); Creatinine Clr Calc Pharmacy 32.5 ml/min; Est GFR (African American) 75.1 ml/min; Est GFR (Non-African American) 64.8 ml/min; Magnesium 2.1 mg/dl (1.7-2.4); Potassium 4.2 mmol/L (3.5-5.1)
[2023-02-16] MEDS ORDERED: ONDANSETRON INJ 2 MG/ML 2 ML VIAL IV STA (10:00)
[2023-02-16] MEDS ORDERED: HYDROmorphone INJ 0.5 MG/0.5 ML SYR IV STA (10:00)
--- NOTE | 2023-02-16 10:00 | CT Scan Report ---
CT SCAN OF THE LEFT KNEE WITHOUT IV CONTRAST CLINICAL HISTORY: Fall with left knee injury. COMPARISON STUDY: Radiographs of left knee dated 02/16/2023. TECHNIQUE: CT scan of the left knee is performed from the distal femur to the proximal tibia and fib balwinder. Images are reviewed in the axial, sagittal, and coronal planes. IV contrast was not administered for this examination. A dose lowering technique was utilized adhering to the principles of ALARA. CT DOSE: 330.12 mGy.cm FINDINGS: The skeletal structures are heterogeneously osteopenic. There is a comminuted nondisplaced fracture of the distal femoral metaphysis with intra-articular extension. Fracture is best seen on co duane image #30 and axial image #103. There is associated joint effusion with lipohemarthrosis. There is also likely nondepressed impaction type tibial plateau fracture (axial image #166 and coronal kathy ge #24). This is difficult to assess due to the degree of demineralization. The proximal fibula is in tact. There is mild tricompartmental degenerative joint space narrowing. Mild soft tissue edema is se en around the knee. There is generalized atrophy of the regional musculature. There is asymmetric atr ophy of the medial head of the gastrocnemius. IMPRESSION: 1. Comminuted nondisplaced fracture of the distal femoral metaphysis with intra-articular extension a nd associated lipohemarthrosis. 2. There is also likely a nondepressed impaction type fracture of the tibial plateau. This is difficu lt to assess due to the degree of demineralization. ACT 112: Negative or not required by law. Electronically signed by: Arnol Gudino M.D. 02/16/2023 9:58 AM
--- NOTE | 2023-02-16 10:51 | History & Physical Report ---
Date of Service February 16, 2023 Assessment & Plan (1) Closed left femoral fracture: (2) Closed fracture of left tibial plateau: (3) Acute UTI (urinary tract infection): (4) Ground-level fall: (5) HTN (hypertension): (6) Hypothyroidism: (7) Peripheral neuropathy: Plan Pt is an 79yoF with PMHx significant for left knee OA, Hx of compression fracture, Hx of left hip replacement, HTN, Hypothyroidism, DDD and peripheral neuropathy admitted with L distal femoral and tibial plateau fracture. Fall/L distal femoral fracture/Tibial plateau fracture Pt uses walker at baseline to ambulate Had mechanical fall at home while using her walker to go the bathroom. Denies syncope/LOC, did not hit her head States she landed on her right side with her left leg" up and over the right" Was not able to weightbear once daughter helped her up, arrived to the ED via ambulance XR L knee with "Distal femoral fracture with associated lipohemarthrosis." CT Knee noted "Comminuted nondisplaced fracture of the distal femoral metaphysis with intra-articular extension and associated lipohemarthrosis" and "...nondepressed impaction type fracture of the tibial plateau." Orthopedics consult- recommending nonsurgical treatment- appreciate recs Pain control- IV Dilaudid 0.25mg q6h for mod-severe pain, IV tylenol 1000mg q8h for mild pain Hold home tramadol, Flexeril Complicated UTI UA suggestive of infection, urine Cx pending Blood Cx x2 ordered Possible cause of fall though history suggests more mechanical IV Rocephin, narrow/discontinue based on culture results HTN Currently not controlled Pt in pain, also notes she has not taken her AM meds One dose of her home lisinopril 40mg given Consider IV antihypertensive for persistent elevation and further control Hypothyroidism Continue home levothyroxine DDD/peripheral neuropathy Continue home gabapentin, cymbalta Holding home flexeril and tramadol as noted above CODE STATUS: Pt AAOx3, discussion with daughter in the room. Declines CPR, would like intubation and ventilation. Diet: HH DVT prophylaxis: per ortho recs, TEDs and SCDs Dispo:Med/Surg with tele, can downgrade once HTN controlled History of Present Illness Chief Complaint: fall Primary Care Provider: Humberto Hyatt, Pt is an 79yoF with PMHx significant for left knee OA, Hx of compression fracture, Hx of left hip replacement, HTN, Hypothyroidism, DDD and peripheral neuropathy admitted with L distal femoral and tibial plateau fracture. History obtained from pt and daughter present in the room. Pt states that she was trying to go to the bathroom this morning using her walker when she fell and landed on her right side. States that her left leg then wrapped around her right, notes "everything always happens on her left". She notes that she had a history of left hip replacement in the past. She states that she did not lose consciousness and did not hit her head. Daughter notes that she helped her get up but she was unable to weight bear after standing. She was brought to the ED via ambulance. She notes that she is able to ambulate with walker at baseline, occasional use of a cane. Denies dysuria, states she has daily bowel movements. Allergies Allergy/AdvReac Type Severity Reaction Status Date / Time No Known Allergies Allergy Verified 03/12/22 10:22 Home Medications Medication Instructions Recorded Confirmed Type cyclosporine 0.05 % eye drops in a 1 drp OPB Q12H PRN Dry Eye(S) 09/10/19 02/16/23 History dropperette (Restasis) timolol maleate 0.5 % eye drops 1 drp OPB QAM 09/10/19 02/16/23 History acetaminophen 325 mg tablet 650 mg PO Q6H PRN fever #1 tab 01/27/20 02/16/23 Rx cyclobenzaprine 10 mg tablet 10 mg PO TID PRN muscle spasm #30 07/31/21 02/16/23 Rx tabs tramadol 50 mg tablet 50 mg PO BID PRN pain #60 tabs 08/14/21 02/16/23 Rx gabapentin 100 mg capsule 100 mg PO TID #270 caps 10/16/21 02/16/23 Rx (Neurontin) calcium carbonate 600 mg-vitamin 1 cap PO HS 01/10/22 02/16/23 History D3 12.5 mcg (500 unit) capsule (Calcium 600 with Vitamin D3) celecoxib 200 mg capsule (Celebrex) 200 mg PO DAILY #90 caps 06/15/22 02/16/23 Rx lisinopril 40 mg tablet 40 mg PO QAM #90 tabs 06/15/22 02/16/23 Rx duloxetine 20 mg capsule,delayed 20 mg PO DAILY 02/16/23 02/16/23 History release ketoconazole 2 % shampoo See Rx Instructions topical Q14D 02/16/23 02/16/23 History PRN Other levothyroxine 75 mcg tablet 75 mcg PO DAILY 02/16/23 02/16/23 History Past Med/Surg History Medical History (Updated 02/16/23 @ 13:36 by Dinroa Mauricio MD) Anemia Anxiety Bilateral lower extremity edema Cancer COLON POLYP REMOVED Cellulitis Closed intertrochanteric fracture of left hip Fracture of distal end of left femur GERD (gastroesophageal reflux disease) Hyperlipidemia Hypothyroidism Non-traumatic compression fracture of thoracic vertebra Osteoarthritis Peripheral neuropathy Pressure sore on buttocks Surgical History History of bilateral tubal ligation History of cataract surgery RT History of colonoscopy History of open reduction and internal fixation (ORIF) procedure History of tonsillectomy and adenoidectomy History of tooth extraction Family History Father Bone cancer Mother Hypertension Myocardial infarction Social History Smoking Status: Never smoker Second Hand Exposure: Yes; Do You Dip or Chew Tobacco: No; Hx Alcohol Use: No Hx Substance Use: No Preferred Language: Paragu[place] Communication Ability: Effective Communication Ability Comment: Pt LUM[place] Visual Impairment: No Limitations Histology Specialist Required: No Beliefs That Will Affect Care: None marital status: / Current Living Situation: Family Current Living Situation Comment: daughter has been living with patient since she fell in January How many Children do You have: 2 Other Information That Helps Us Care for You: No Feels Safe at Home: Yes Safety Concerns: Feels Safe At This Time Childhood Exposure to Second-Hand Smoke: No Diet: regular caffeine: Yes during the past year weight has: remained stable Physical Activity Frequency: 1-2 Times per Week Seatbelt Use: always Sunscreen Use: No Assistive Devices: Glasses and Walker Review of Systems Review of Systems: All systems reviewed & are unremarkable except as noted in HPI & below Physical Exam Physical Exam: General: Alert, orientedx3. No acute distress with knees bent sitting on urinal Skin: No noted rashes or bruises Psych: Appropriate mood and affect Neuro: pain with leg movement HEENT: NC/AT Chest: Nontender to palpation. CV: RRR, Normal s1, s2. No murmurs appreciated Resp:no increased effort of breathing Abdomen: Soft, nontender. Extremities: No edema in lower extremities bilaterally. No visible bruising of left knee or swelling. Nontender to palpation in flexed position. Results & Data Results & Data Vital Signs (Past 12 Hours) Vital Signs Temp Pulse Pulse Resp BP BP Pulse Ox 02/16/23 07:44 36.8 C 92 H 16 213/114 H 97 02/16/23 07:40 36.8 C 92 H 16 213/114 H 97 O2 Del Method 02/16/23 07:44 Room Air 02/16/23 07:40 Room Air Diagnostic Findings Femur X-Ray 02/16/23 07:51 SINGLE VIEW PELVIS; 2 VIEWS LEFT FEMUR CLINICAL HISTORY: Fall. Left leg injury. FINDINGS: An AP view of the pelvis with AP and crosstable lateral views of the left femur are obtained. Comparison is made to studies dated 01/25/2020 and 05/03/2020. The skeletal structures are osteopenic. No acute fracture is seen involving the hips or bony pelvis. There is chronic posttraumatic deformity of the left proximal femur with intertrochanteric and intramedullary nails in place. There is a fracture of the distal femoral metaphysis with associated lipohemarthrosis of the knee. Hrjm-cw-bctgorzk arthritic change and joint space narrowing is seen in the hips. Sclerotic change is noted in the sacroiliac joints. Lumbosacral spondylosis is partially imaged. Mild soft tissue swelling is suggested in the distal thigh. IMPRESSION: 1. No acute fracture is seen involving the hips or bony pelvis. 2. Nondisplaced fracture of the distal femoral metaphysis with associated lipohemarthrosis of the knee joint. 3. There is chronic posttraumatic deformity and postsurgical change in the left proximal femur. Electronically signed by: Arnol Gudino M.D. 02/16/2023 8:54 AM Knee X-Ray 02/16/23 07:51 LEFT KNEE 2 VIEWS CLINICAL HISTORY: Fall. Left knee injury. FINDINGS: AP and crosstable lateral views of the left knee are obtained. Correlation is made with radiographs of the left femur dated 05/03/2020. The skeletal structures are osteopenic. There is a nondisplaced fracture of the distal femoral metaphysis with associated joint effusion/lipohemarthrosis of the knee. No additional acute fracture is clearly seen. There is mild tricompartmental degenerative joint space narrowing. Mild soft tissue swelling is seen in the distal thigh. IMPRESSION: Distal femoral fracture with associated lipohemarthrosis. Electronically signed by: Arnol Gudino M.D. 02/16/2023 8:57 AM Pelvis X-Ray 02/16/23 07:51 SINGLE VIEW PELVIS; 2 VIEWS LEFT FEMUR CLINICAL HISTORY: Fall. Left leg injury. FINDINGS: An AP view of the pelvis with AP and crosstable lateral views of the left femur are obtained. Comparison is made to studies dated 01/25/2020 and 05/03. The skeletal structures are osteopenic. No acute fracture is seen involving the hips or bony pelvis. There is chronic posttraumatic deformity of the left proximal femur with intertrochanteric and intramedullary nails in place. There is a fracture of the distal femoral metaphysis with associated lipohemarthrosis of the knee. [id number]-[id number] arthritic change and joint space narrowing is seen in the hips. Sclerotic change is noted in the sacroiliac joints. Lumbosacral spondylosis is partially imaged. Mild soft tissue swelling is suggested in the distal thigh. IMPRESSION: 1. No acute fracture is seen involving the hips or bony pelvis. 2. Nondisplaced fracture of the distal femoral metaphysis with associated lipohemarthrosis of the knee joint. 3. There is chronic posttraumatic deformity and postsurgical change in the left proximal femur. Electronically signed by: Arnol Gudino M.D. 02/16/2023 8:[address] 02/16/23 08:50 CT SCAN OF THE LEFT KNEE WITHOUT IV CONTRAST CLINICAL HISTORY: Fall with left knee injury. COMPARISON STUDY: Radiographs of left knee dated 02/16/2023. TECHNIQUE: CT scan of the left knee is performed from the distal femur to the proximal tibia and fibula. Images are reviewed in the axial, sagittal, and coronal planes. IV contrast was not administered for this examination. A dose lowering technique was utilized adhering to the principles of ALARA. CT DOSE: 330.12 mGy.cm FINDINGS: The skeletal structures are heterogeneously osteopenic. There is a comminuted nondisplaced fracture of the distal femoral metaphysis with intra- articular extension. Fracture is best seen on coronal image #30 and axial image #103. There is associated joint effusion with lipohemarthrosis. There is also likely nondepressed impaction type tibial plateau fracture (axial image #166 and coronal image #24). This is difficult to assess due to the degree of demineralization. The proximal fibula is intact. There is mild tricompartmental degenerative joint space narrowing. Mild soft tissue edema is seen around the knee. There is generalized atrophy of the regional musculature. There is asymmetric atrophy of the medial head of the gastrocnemius. IMPRESSION: 1. Comminuted nondisplaced fracture of the distal femoral metaphysis with intra- articular extension and associated lipohemarthrosis. 2. There is also likely a nondepressed impaction type fracture of the tibial plateau. This is difficult to assess due to the degree of demineralization. ACT 112: Negative or not required by law. Electronically signed by: Arnol Gudino M.D. 02/16/2023 9:58 AM (1) Closed left femoral fracture Encounter type: initial encounter Femur location: condyle Fracture alignment: nondisplaced Qualified Code(s): S72.415A - Nondisplaced unspecified condyle fracture of lower end of left femur, initial encounter for closed fracture (2) Closed fracture of left tibial plateau Encounter type: initial encounter Qualified Code(s): S82.142A - Displaced bicondylar fracture of left tibia, initial encounter for closed fracture
--- NOTE | 2023-02-16 10:53 | Orthopedic Consultation ---
Date of Service February 16, 2023 Assessment & Plan (1) Fracture of distal end of left femur: 82-year-old female ambulator with walker with history of falls and severe osteoporosis presents with a minimally displaced and impacted fracture of her lateral femoral condyle in her left knee. The fracture appears to be a stable pattern and severely osteoporotic periarticular bone. -Plan for nonsurgical treatment -Knee immobilizer: May loosen and adjust while supported in bed only. -Gentle active assisted range of motion as tolerated when nonweightbearing only -Expect at least 4 weeks of nonweightbearing with knee immobilizer in place for all ambulatory activities. -We will need serial radiographs in 10 to 14 days to ensure stability. -PT/OT evaluations for disposition -DVT prophylaxis should be relative considering her fall risk and other medical comorbidities. Daily aspirin therapy, if tolerated, should be sufficient. Use mechanical DVT prophylaxisSCDs and tedswhile in hospital. History of Present Illness Reason for Consultation: Left distal femur fracture Requesting Physician: . 82-year-old female home ambulator with walker with osteoporosis sustained fall onto her knee today resulting in immediate pain. Emergency room work-up revealed a minimally displaced and impacted lateral femoral condyle fracture that appears stable. Questionable tibial plateau fracture. She reports no previous injuries to that knee. Unable to ambulate. Allergies Allergy/AdvReac Type Severity Reaction Status Date / Time No Known Allergies Allergy Verified 03/12/22 10:22 Home Medications Medication Instructions Recorded Confirmed Type cyclosporine 0.05 % eye drops in a 1 drp OPB Q12H PRN Dry Eye(S) 09/10/19 02/16/23 History dropperette (Restasis) timolol maleate 0.5 % eye drops 1 drp OPB QAM 09/10/19 02/16/23 History acetaminophen 325 mg tablet 650 mg PO Q6H PRN fever #1 tab 01/27/20 02/16/23 Rx cyclobenzaprine 10 mg tablet 10 mg PO TID PRN muscle spasm #30 07/31/21 02/16/23 Rx tabs tramadol 50 mg tablet 50 mg PO BID PRN pain #60 tabs 08/14/21 02/16/23 Rx gabapentin 100 mg capsule 100 mg PO TID #270 caps 10/16/21 02/16/23 Rx (Neurontin) calcium carbonate 600 mg-vitamin 1 cap PO HS 01/10/22 02/16/23 History D3 12.5 mcg (500 unit) capsule (Calcium 600 with Vitamin D3) celecoxib 200 mg capsule (Celebrex) 200 mg PO DAILY #90 caps 06/15/22 02/16/23 Rx lisinopril 40 mg tablet 40 mg PO QAM #90 tabs 06/15/22 02/16/23 Rx duloxetine 20 mg capsule,delayed 20 mg PO DAILY 02/16/23 02/16/23 History release ketoconazole 2 % shampoo See Rx Instructions topical Q14D 02/16/23 02/16/23 History PRN Other levothyroxine 75 mcg tablet 75 mcg PO DAILY 02/16/23 02/16/23 History Past Med/Surg History Medical History (Updated 02/16/23 @ 13:36 by Dinora Mauricio MD) Anemia Anxiety Bilateral lower extremity edema Cancer COLON POLYP REMOVED Cellulitis Closed intertrochanteric fracture of left hip Fracture of distal end of left femur GERD (gastroesophageal reflux disease) Hyperlipidemia Hypothyroidism Non-traumatic compression fracture of thoracic vertebra Osteoarthritis Peripheral neuropathy Pressure sore on buttocks Surgical History History of bilateral tubal ligation History of cataract surgery RT History of colonoscopy History of open reduction and internal fixation (ORIF) procedure History of tonsillectomy and adenoidectomy History of tooth extraction Family History Father Bone cancer Mother Hypertension Myocardial infarction Social History Smoking Status: Never smoker Second Hand Exposure: Yes; Do You Dip or Chew Tobacco: No; Hx Alcohol Use: No Hx Substance Use: No Preferred Language: Bruneian Communication Ability: Effective Communication Ability Comment: Pt [place] Visual Impairment: No Limitations Porcelain Enamel Repairer Required: No Beliefs That Will Affect Care: None marital status: / Current Living Situation: Family Current Living Situation Comment: daughter has been living with patient since she fell in January How many Children do You have: 2 Other Information That Helps Us Care for You: No Feels Safe at Home: Yes Safety Concerns: Feels Safe At This Time Childhood Exposure to Second-Hand Smoke: No Diet: regular caffeine: Yes during the past year weight has: remained stable Physical Activity Frequency: 1-2 Times per Week Seatbelt Use: always Sunscreen Use: No Assistive Devices: Glasses and Walker Review of Systems All systems reviewed & are unremarkable except as noted in HPI & below. Physical Exam Daughter Eloisa at the bedside. LLE: Moderate effusion as expected. Activates the quad. Positive DF/PF/EHL. Sensation grossly intact to light touch. No skin compromise. Mildly tender over the lateral aspect of the distal femur. Nontender over the plateau. No gross deformity. Slight flexion contracture that matches her noninjured side. The knee immobilizer was very large for her diameter, so I trimmed the knee immobilizer to fit better. The length is good. Constitutional WD/WN, vitals as above Respiratory normal respiratory effort; no respiratory distress Cardiovascular Extremities: normal capillary refill; no edema Chest (Breasts) Chest: normal inspection of chest Skin no rashes, warm and dry Psychiatric A+Ox3, euthymic affect Results & Data Results & Data Laboratory Results H & H 02/16/23 Range/Units 08:59 Hgb 14.9 (12.0-16.0) g/dl Hct 45.2 (37.0-47.0) % Diagnostic Findings Radiographs reviewed. AP and lateral of the left knee demonstrates an impacted possible fracture at the lateral metaphysis. Agree with CT scan. CT scan reveals an impacted and minimally displaced fracture of the lateral femoral condyle base. Questionable cortical disruptions in the medial and lateral tibial plateau that are nondisplaced. Appears to be a stable fracture and severely osteoporotic bone. PG Care Time/CCT Total # of Minutes Spent Total Time Spent with Patient: Total time spent is greater than 50% in coordination of care (as documented) at patient's floor/unit and/or counseling patient: Coding Level of Care Code 76925 IN/OBS CONSULT LVL 4,60M Diagnoses Fracture of distal end of left femur S72.402A Additional Codes Fx Hip/Femur - Distal femoral condyle: Distal femoral condyle ([id number])
[2023-02-16 11:04] LABS: Appearance Urine Turbid (Clear); Bacteria Urine Automated 4+ (Negative); Bilirubin Urine Negative (Negative); Blood Urine Negative (Negative); Color Urine Yellow; Epithelial Cell Urine Auto >30 /lpf (0-5); Glucose Urine UA Negative (Negative); Ketones Urine Trace (Negative); Leukocyte Esterase Urine 2+ (Negative); Nitrite Urine Positive (Negative); RBC Urine Automated 0-4 /hpf (0-4); Specific Gravity Urine 1.016 (1.000-1.030); Urobilinogen Urine Negative (Negative); WBC Urine Automated >30 /hpf (0-5); pH Urine 8.5 (4.5-7.5)
[2023-02-16 11:16] LABS: Protein Urine 1+ (Negative)
[2023-02-16] MEDS ORDERED: cefTRIAXone SODIUM 2,000 MG/70 ML BAG IV STA (11:27)
[2023-02-16] MEDS ORDERED: lisinopril 40 MG TAB PO ONE (11:27)
[2023-02-16] MEDS ORDERED: ACETAMINOPHEN 1,000 MG/100 ML VIAL IV PRN (12:38)
[2023-02-16] MEDS ORDERED: HYDROmorphone INJ 0.5 MG/0.5 ML SYR IV PRN (12:38)
[2023-02-16] MEDS: ACETAMINOPHEN 500 MG TAB PO PRN ×2 (12:54→21:23)
[2023-02-16] MEDS: GABAPENTIN 100 MG CAP PO SCH ×2 (14:27→21:23)
[2023-02-16] MEDS: CALCIUM 600MG + VIT D 400 IU TAB PO SCH (21:23)
[2023-02-17] MEDS: LEVOTHYROXINE SODIUM 75 MCG TABLET PO SCH (05:50)
[2023-02-17 06:38] LABS: Basophils # (auto) 0.05 K/uL (0-0.2); Basophils % (auto) 0.6 %; Eosinophils # (auto) 0.23 K/uL (0-0.50); Eosinophils % (auto) 2.6 %; Hematocrit (blood only) 43.1 % (37.0-47.0); Hemoglobin 14.4 g/dl (12.0-16.0); Immature Granulocytes # (auto) 0.03 K/uL (0.01-0.20); Immature Granulocytes % (auto) 0.3 %; Lymphocytes # (auto) 0.97 K/uL (1.2-3.4); Lymphocytes % (auto) 10.9 %; Mean Corpuscular Hemoglobin 33.1 pg (25.0-34.0); Mean Corpuscular Hgb Conc 33.4 g/dL (32.0-36.0); Mean Corpuscular Volume 99.1 fL (80.0-100.0); Mean Platelet Volume 10.5 fL (9.4-12.4); Monocytes # (auto) 1.05 K/uL (0.11-0.59); Monocytes % (auto) 11.8 %; Neutrophils # (auto) 6.57 K/uL (1.40-6.50); Neutrophils % (auto) 73.8 %; Platelet Count 170 K/uL (130-400); RDW Coefficient of Variation 13.3 % (11.5-14.5); RDW Standard Deviation 48.4 fL (36.4-46.3); Red Blood Count 4.35 M/uL (4.20-5.40)
[2023-02-17 06:55] LABS: BUN Creatinine Ratio 29.1 (10-20); Creatinine Clr Calc Pharmacy 31.9 ml/min; Est GFR (African American) 71.9 ml/min; Potassium 4.6 mmol/L (3.5-5.1)
[2023-02-17] MEDS: TIMOLOL MALEATE 0.5% OP SOLN 5 ML BTL OPB SCH (08:54)
[2023-02-17] MEDS: GABAPENTIN 100 MG CAP PO SCH ×3 (08:54→20:52)
[2023-02-17] MEDS: ASPIRIN 81 MG ECTAB PO SCH (08:54)
[2023-02-17] MEDS: lisinopril 40 MG TAB PO SCH (08:55)
[2023-02-17] MEDS: DULoxetine HCL 20 MG CAP PO SCH (08:55)
[2023-02-17] MEDS: ACETAMINOPHEN 500 MG TAB PO PRN (08:56)
--- NOTE | 2023-02-17 09:59 | Hospitalist Progress Note ---
Date of Service February 17, 2023 Assessment & Plan (1) Closed left femoral fracture: (2) Closed fracture of left tibial plateau: (3) Acute UTI (urinary tract infection): (4) Ground-level fall: (5) HTN (hypertension): (6) Hypothyroidism: (7) Peripheral neuropathy: Plan Pt is an 79yoF with PMHx significant for left knee OA, Hx of compression fracture, Hx of left hip replacement, HTN, Hypothyroidism, DDD and peripheral neuropathy admitted with L distal femoral and tibial plateau fracture. Fall/L distal femoral fracture/Tibial plateau fracture Pt uses walker at baseline to ambulate Had mechanical fall at home while using her walker to go the bathroom. Denies syncope/LOC or head trauma Was not able to bear weight when daughter helped her up XR L knee with "Distal femoral fracture with associated lipohemarthrosis." CT Knee noted Comminuted nondisplaced fracture of the distal femoral metaphysis with intra-articular extension and associated lipohemarthrosis. Nondepressed impaction type fracture of the tibial plateau. Orthopedics evaluated and recommended nonsurgical treatment Expect 4 weeks of NWB with knee immobilizer Need serial XR in 10-14 days to assess stability Optimize pain control PT/OT eval May need rehab placement Hold home tramadol Resume home flexeril prn at lower dose and monitor Continue dilaudid 0.25mg q6h prn for severe pain Oxycodone 5mg tid prn for mild to moderate pain Scheduled tylenol Complicated UTI UA suggestive of infection Urine Cx growing GNR Continue IV ceftriaxone and follow up culture results HTN BP has been fluctuating from very elevated to borderline low Optimize pain meds Continue home lisinpril 40mg and monitor Hypothyroidism Continue home levothyroxine DDD/peripheral neuropathy Continue home gabapentin, cymbalta Home tramadol on hold. CODE STATUS: Pt AAOx3. Declined CPR, would like intubation and ventilation. Diet: HH DVT prophylaxis: TEDs and SCDs. Will hold off chemical DVT for now in view of lipohemarthrosis of knee joint noted on XR I spent a total of 50 minutes coordinating, documenting and providing care for this patient excluding time spent in performance of separately billed services Admission and Anticipated Discharge Date Admission Date: February 16, 2023 Subjective Patient seen and examined Reports left knee pain only on movement Denied any headache, dizziness, cough, chest pain, SOB, nausea, vomiting, abd pain, constipation/diarrhea, dysuria, freq, urgency Physical Exam Constitutional: + well hydrated; no acute distress Elderly woman Eyes: PERRL, conjunctivae normal, anicteric sclerae ENMT: external ear and nose normal, oropharynx normal Respiratory: normal respiratory effort, lungs clear to auscultation Cardiovascular: Rate/Rhythm: regular rate and regular rhythm S1 S2 Gastrointestinal (Abdomen): normal bowel sounds, soft, nontender, no hepatos plenomegaly Musculoskeletal: Left knee immobilizer in place No pedal edema Neurologic: PERRL, EOMI, accommodation nl, no face palsy, no dysarthria Psychiatric: A+Ox3, euthymic affect Results & Data Results & Data Vital Signs (Past 12 Hours) Vital Signs Temp Pulse Pulse Resp BP Pulse Ox O2 Del Method 02/17/23 07:20 36.9 C 74 16 178/90 H 95 Room Air 02/17/23 06:01 72 02/17/23 03:07 36.9 C 71 16 96/52 L 93 Room Air 02/17/23 01:05 72 02/16/23 23:16 36.7 C 78 18 148/73 H 93 Room Air Laboratory Results Abnormal lab results 02/16/23 02/17/23 02/17/23 Range/Units 10:47 05:54 05:54 RDW Std Deviation 48.4 H (36.4-46.3) fL Neut # (Auto) 6.57 H (1.40-6.50) K/uL Lymph # (Auto) 0.97 L (1.2-3.4) K/uL Drew # (Auto) 1.05 H (0.11-0.59) K/uL BUN 25 H (6-23) mg/dl BUN/Creatinine Ratio 29.1 H (10-20) Glucose 107 H (70-99(Fasting)) mg/dl Urine Appearance Turbid A (Clear) Urine pH 8.5 H (4.5-7.5) Urine Protein 1+ H (Negative) Urine Ketones Trace H (Negative) Urine Nitrite Positive A (Negative) Ur Leukocyte Esterase 2+ H (Negative) Urine WBC (Auto) >30 H (0-5) /hpf U Epithel Cells (Auto) >30 H (0-5) /lpf Urine Bacteria (Auto) 4+ H (Negative) (1) Closed left femoral fracture Encounter type: initial encounter Femur location: condyle Fracture alignment: nondisplaced Qualified Code(s): S72.415A - Nondisplaced unspecified condyle fracture of lower end of left femur, initial encounter for closed fracture (2) Closed fracture of left tibial plateau Encounter type: initial encounter Qualified Code(s): S82.142A - Displaced bicondylar fracture of left tibia, initial encounter for closed fracture
[2023-02-17] MEDS ORDERED: CYCLOBENZAPRINE HCL 5 MG TAB PO PRN (11:06)
[2023-02-17] MEDS ORDERED: oxyCODONE HCL IR 5 MG TAB (IMMEDIATE RELEASE) PO PRN (11:07)
[2023-02-17] MEDS ORDERED: HYDROmorphone INJ 0.5 MG/0.5 ML SYR IV PRN (11:07)
[2023-02-17] MEDS: ACETAMINOPHEN 500 MG TAB PO SCH ×2 (11:14→18:17)
[2023-02-17] MEDS ORDERED: cefTRIAXone SODIUM 2,000 MG in DEXTROSE 5% 50 ML IV SCH (12:00)
--- NOTE | 2023-02-17 14:08 | Orthopedic Progress Note ---
Date of Service February 17, 2023 Assessment & Plan (1) Fracture of distal end of left femur: 82-year-old female ambulator with walker with history of falls and severe osteoporosis presents with a minimally displaced and impacted fracture of her lateral femoral condyle in her left knee. The fracture appears to be a stable pattern and severely osteoporotic periarticular bone. -No change to the plan of care for nonsurgical treatment -No further inpatient orthopedic needs. Please contact with any questions. -Knee immobilizer: May loosen and adjust while supported in bed only. -Gentle active assisted range of motion as tolerated when nonweightbearing only -Expect at least 4 weeks of nonweightbearing with knee immobilizer in place for all ambulatory activities. -We will need serial radiographs in 10 to 14 days to ensure stability. -DVT prophylaxis should be relative considering her fall risk and other medical comorbidities. Daily aspirin therapy, if tolerated, should be sufficient. Use mechanical DVT prophylaxisSCDs and tedswhile in hospital. Subjective Unaccompanied by her daughter today. She reports pain is tolerable as she moves. No other issues. Review of Systems All systems reviewed & are unremarkable except as noted in HPI & below. Physical Exam LLE: The brace is actually well fit. She has positive DF/PF/EHL. Effusion persists Constitutional WD/WN, vitals as above no acute distress and not intoxicated appearing Respiratory normal respiratory effort; no labored breathing Cardiovascular Extremities: normal capillary refill Results & Data Results & Data Laboratory Results . Diagnostic Findings . PG Care Time/CCT Total # of Minutes Spent Total Time Spent with Patient: Total time spent is greater than 50% in coordination of care (as documented) at patient's floor/unit and/or counseling patient: Coding Diagnoses Fracture of distal end of left femur S72.402A
[2023-02-17] MEDS ORDERED: POLYETHYLENE (MIRALAX) 17 GM PACK PO PRN (14:41)
[2023-02-17] MEDS: CALCIUM 600MG + VIT D 400 IU TAB PO SCH (20:52)
[2023-02-18] MEDS: ACETAMINOPHEN 500 MG TAB PO SCH ×3 (06:28→20:16)
[2023-02-18] MEDS: LEVOTHYROXINE SODIUM 75 MCG TABLET PO SCH (06:28)
[2023-02-18 07:49] LABS: Hematocrit (blood only) 41.8 % (37.0-47.0); Hemoglobin 13.8 g/dl (12.0-16.0); Mean Corpuscular Hemoglobin 32.9 pg (25.0-34.0); Mean Corpuscular Volume 99.8 fL (80.0-100.0); Mean Platelet Volume 10.7 fL (9.4-12.4); Platelet Count 158 K/uL (130-400); RDW Coefficient of Variation 13.3 % (11.5-14.5); RDW Standard Deviation 48.9 fL (36.4-46.3); Red Blood Count 4.19 M/uL (4.20-5.40); White Blood Count 7.89 K/ul (4.8-10.8)
[2023-02-18 08:12] LABS: BUN Creatinine Ratio 35.2 (10-20); Calcium 9.6 mg/dl (8.6-10.3); Creatinine Clr Calc Pharmacy 38.6 ml/min; Est GFR (African American) 90.7 ml/min; Est GFR (Non-African American) 78.2 ml/min; Potassium 4.3 mmol/L (3.5-5.1)
--- NOTE | 2023-02-18 09:58 | Hospitalist Progress Note ---
Date of Service February 18, 2023 Assessment & Plan (1) Closed left femoral fracture: (2) Closed fracture of left tibial plateau: (3) Acute UTI (urinary tract infection): (4) Ground-level fall: (5) HTN (hypertension): (6) Hypothyroidism: (7) Peripheral neuropathy: Plan Pt is an 79yoF with PMHx significant for left knee OA, Hx of compression fracture, Hx of left hip replacement, HTN, Hypothyroidism, DDD and peripheral neuropathy admitted with L distal femoral and tibial plateau fracture. Fall/L distal femoral fracture/Tibial plateau fracture Pt uses walker at baseline to ambulate Had mechanical fall at home while using her walker to go the bathroom. Denies syncope/LOC or head trauma Was not able to bear weight when daughter helped her up XR L knee with "Distal femoral fracture with associated lipohemarthrosis." CT Knee noted Comminuted nondisplaced fracture of the distal femoral metaphysis with intra-articular extension and associated lipohemarthrosis. Nondepressed impaction type fracture of the tibial plateau. Orthopedics evaluated and recommended nonsurgical treatment Expect 4 weeks of NWB with knee immobilizer Need serial XR in 10-14 days to assess stability Pain control PT/OT eval May need rehab placement Hold home tramadol Continue dilaudid 0.25mg q6h prn for severe pain, Oxycodone 5mg tid prn for mild to moderate pain Scheduled tylenol Complicated UTI UA suggestive of infection Urine Cx growing pansensitive E coli Ceftriaxone changed to po cefdinir to complete treatment HTN Continue home lisinpril 40mg and monitor Hypothyroidism Continue home levothyroxine DDD/peripheral neuropathy Continue home gabapentin, cymbalta Home tramadol on hold. CODE STATUS: Pt AAOx3. Declined CPR, would like intubation and ventilation. Diet: HH DVT prophylaxis: TEDs and SCDs. Will hold off chemical DVT for now in view of lipohemarthrosis of knee joint noted on XR I spent a total of 45 minutes coordinating, documenting and providing care for this patient excluding time spent in performance of separately billed services Admission and Anticipated Discharge Date Admission Date: February 16, 2023 Subjective Patient seen and examined Reports left knee pain is better controlled Sitting on side of bed exercising with PT Denied any cough, chest pain, SOB, nausea, vomiting, diarrhea, constipation, dysuria, freq Physical Exam Constitutional: + well hydrated; no acute distress Eyes: PERRL, conjunctivae normal, anicteric sclerae ENMT: external ear and nose normal, oropharynx normal Respiratory: normal respiratory effort, lungs clear to auscultation Cardiovascular: Rate/Rhythm: regular rate and regular rhythm S1 S2 Gastrointestinal (Abdomen): normal bowel sounds, soft, nontender, no hepatosplenomegaly Musculoskeletal: No pedal edema. Left Knee immobilizer Neurologic: PERRL, EOMI, accommodation nl, no face palsy, no dysarthria Psychiatric: A+Ox3, euthymic affect Results & Data Results & Data Vital Signs (Past 12 Hours) Vital Signs Temp Pulse Pulse Resp BP Pulse Ox O2 Del Method 02/18/23 07:27 36.5 C 67 16 149/73 H 93 Room Air 02/18/23 03:07 36.5 C 62 16 124/60 95 Room Air 02/18/23 01:21 59 L 02/17/23 23:14 36.5 C 64 16 133/81 91 Room Air Laboratory Results Abnormal lab results 02/18/23 02/18/23 Range/Units 06:58 06:58 RBC 4.19 L (4.20-5.40) M/uL RDW Std Deviation 48.9 H (36.4-46.3) fL BUN 25 H (6-23) mg/dl BUN/Creatinine Ratio 35.2 H (10-20) Glucose 109 H (70-99(Fasting)) mg/dl (1) Closed left femoral fracture Encounter type: initial encounter Femur location: condyle Fracture alignment: nondisplaced Qualified Code(s): S72.415A - Nondisplaced unspecified condyle fracture of lower end of left femur, initial encounter for closed fracture (2) Closed fracture of left tibial plateau Encounter type: initial encounter Qualified Code(s): S82.142A - Displaced bicondylar fracture of left tibia, initial encounter for closed fracture
[2023-02-18] MEDS: GABAPENTIN 100 MG CAP PO SCH ×3 (10:04→20:17)
[2023-02-18] MEDS: DULoxetine HCL 20 MG CAP PO SCH (10:04)
[2023-02-18] MEDS: ASPIRIN 81 MG ECTAB PO SCH (10:04)
[2023-02-18] MEDS: lisinopril 40 MG TAB PO SCH (10:04)
[2023-02-18] MEDS: TIMOLOL MALEATE 0.5% OP SOLN 5 ML BTL OPB SCH (10:05)
[2023-02-18] MEDS: CEFDINIR 300 MG CAP PO SCH ×2 (11:52→20:16)
[2023-02-18] MEDS: CALCIUM 600MG + VIT D 400 IU TAB PO SCH (20:16)
[2023-02-19] MEDS: ACETAMINOPHEN 500 MG TAB PO SCH ×2 (05:48→12:41)
[2023-02-19] MEDS: LEVOTHYROXINE SODIUM 75 MCG TABLET PO SCH (05:49)
[2023-02-19] MEDS: lisinopril 40 MG TAB PO SCH (08:48)
[2023-02-19] MEDS: ASPIRIN 81 MG ECTAB PO SCH (08:48)
[2023-02-19] MEDS: CEFDINIR 300 MG CAP PO SCH (08:48)
[2023-02-19] MEDS: DULoxetine HCL 20 MG CAP PO SCH (08:48)
[2023-02-19] MEDS: GABAPENTIN 100 MG CAP PO SCH (08:48)
[2023-02-19] MEDS: TIMOLOL MALEATE 0.5% OP SOLN 5 ML BTL OPB SCH (08:49)
[2023-02-19] MEDS ORDERED: amLODIPine BESYLATE 5 MG TAB PO SCH (09:00)
--- NOTE | 2023-02-19 12:42 | Discharge Summary ---
Date of Service February 19, 2023 Admission HPI Per Admitting Provider Pt is an 79yoF with PMHx significant for left knee OA, Hx of compression fracture, Hx of left hip replacement, HTN, Hypothyroidism, DDD and peripheral neuropathy admitted with L distal femoral and tibial plateau fracture. History obtained from pt and daughter present in the room. Pt states that she was trying to go to the bathroom this morning using her walker when she fell and landed on her right side. States that her left leg then wrapped around her right, notes "everything always happens on her left". She notes that she had a history of left hip replacement in the past. She states that she did not lose consciousness and did not hit her head. Daughter notes that she helped her get up but she was unable to weight bear after standing. She was brought to the ED via ambulance. She notes that she is able to ambulate with walker at baseline, occasional use of a cane. Denies dysuria, states she has daily bowel movements. Admission Exam Per Admitting Provider General: Alert, orientedx3. No acute distress with knees bent sitting on urinal Skin: No noted rashes or bruises Psych: Appropriate mood and affect Neuro: pain with leg movement HEENT: NC/AT Chest: Nontender to palpation. CV: RRR, Normal s1, s2. No murmurs appreciated Resp:no increased effort of breathing Abdomen: Soft, nontender. Extremities: No edema in lower extremities bilaterally. No visible bruising of left knee or swelling. Nontender to palpation in flexed position. Principal Diagnosis Falls Left femoral fracture Left tibial plateau fracture Urinary Tract infection Hypertension Discharge Exam Constitutional + well hydrated; no acute distress Eyes PERRL, conjunctivae normal, anicteric sclerae ENMT external ear and nose normal, oropharynx normal Respiratory normal respiratory effort, lungs clear to auscultation Cardiovascular Rate/Rhythm: regular rate and regular rhythm S1 S2 Gastrointestinal (Abdomen) normal bowel sounds, soft, nontender, no hepatosplenomegaly Musculoskeletal Left knee immobilizer in place No pedal edema Neurologic PERRL, EOMI, accommodation nl, no face palsy, no dysarthria Psychiatric A+Ox3, euthymic affect Discharge Data Allergies Allergy/AdvReac Type Severity Reaction Status Date / Time No Known Allergies Allergy Verified 03/12/22 10:22 Consultations 02/16/23 10:42 Consult Orthopedic Surgery Routine ED Decision to Admit Stat 02/16/23 12:38 Consult Orthopedic Surgery Routine Ordered Studies 02/16/23 08:50 CT knee LT wo con Stat Hospital Course (1) Closed left femoral fracture: (2) Closed fracture of left tibial plateau: (3) Acute UTI (urinary tract infection): (4) Ground-level fall: (5) HTN (hypertension): (6) Hypothyroidism: (7) Peripheral neuropathy: Plan Pt is an 79yoF with PMHx significant for left knee OA, Hx of compression fracture, Hx of left hip replacement, HTN, Hypothyroidism, DDD and peripheral neuropathy admitted with L distal femoral and tibial plateau fracture. Fall/L distal femoral fracture/Tibial plateau fracture Age related osteoporosis with current pathologic fracture Pt uses walker at baseline to ambulate Had mechanical fall at home while using her walker to go the bathroom. Denies syncope/LOC or head trauma Was not able to bear weight when daughter helped her up XR L knee with "Distal femoral fracture with associated lipohemarthrosis." CT Knee noted Comminuted nondisplaced fracture of the distal femoral metaphysis with intra-articular extension and associated lipohemarthrosis. Nondepressed impaction type fracture of the tibial plateau. Orthopedics evaluated and recommended nonsurgical treatment Expect 4 weeks of NWB with knee immobilizer Need serial XR in 10-14 days to assess stability Pain controlled with scheduled tylenol and prn oxycodone PT/OT evaluated and rehab recommended Home tramadol stopped for now while on oxycodone Complicated UTI UA suggestive of infection Urine Cx growing pansensitive E coli Ceftriaxone changed to po cefdinir to complete treatment Severe Malnutrition BMI 15 Counseled on dietary supplement Encourage high protein diet Hypertension Continue home lisinpril 40mg BP significantly elevated even after pain is well controlled Started on amlodipine 5mg daily Hypothyroidism Continue home levothyroxine DDD/peripheral neuropathy Continue home gabapentin, cymbalta Total Time Total Time Spent Total Time Spent (In Minutes): 40 Total Time Includes: Examination of the Patient, Discharge Planning and Medication Reconciliation Discharge Plan Discharge Items Patient Disposition: Transfer Inpatient Rehab Fac Reason For Visit: FEMUR FRACTURE Discharge Diagnosis: Falls Left femoral fracture Left tibial plateau fracture Urinary Tract infection Hypertension Activity: As commented below Activity Comment: As recommended by PT. Non weightbearing Left Lower extremity for about 4wks Non-emergency contact: Primary Care Provider and Surgeon Call non-emergency contact if: you have any medication questions and your symptoms worsen Follow-up/Referrals: Humberto Hyatt, [Primary Care Provider] - Diet: Heart Healthy Addtl Attending Provider Instructions: Mrs Moon You came to the hospital after fall at home and left leg pain. You were evaluated and found to have fracture in your left leg at the knee You were evaluated by Surgeon who recommend no surgery at this time. Please continue to use the knee immobilizer and no weight bearing on Left Leg at this time for about 4 weeks or otherwise instructed. You will need Xray again in about 2 weeks to reassess stability Please ensure follow up with the Orthopedic Surgeon and your Primary Doctor. Please take the remaining days of antibiotics for your Urinary Tract Infection. You were started on amlodipine 5mg daily for better blood pressure control Continue your lisinopril. You are being discharged to Rehab. It was a pleasure taking care of you. Pending Studies at Discharge: No Stand-Alone Forms: My [facility] Skilled Items Patient informed of condition?: Yes DNR: No (No CPR/cardiac defib. Yes to intubation) Discharge Level of Care: Acute rehab Communicable Disease: No Discharge Prognosis: Stable Lines: None Urinary Catheter: No Medications and DC Order Prescriptions: New amlodipine [Norvasc] 5 mg Tablet 5 mg PO QAM 30 Days Qty: 30 0RF cefdinir 300 mg Capsule 300 mg PO BID 3 Days Qty: 6 0RF polyethylene glycol 3350 [Miralax] 17 gram Powder In Packet 17 g PO DAILY PRN (Reason: Constipation) Qty: 15 0RF oxycodone 5 mg Tablet 5 mg PO TID PRN (Reason: pain) Qty: 15 0RF Continued gabapentin [Neurontin] 100 mg capsule 100 mg PO TID Qty: 270 3RF Hold Instructions: Is going to try without lisinopril 40 mg tablet 40 mg PO QAM Qty: 90 3RF celecoxib [Celebrex] 200 mg capsule 200 mg PO DAILY Qty: 90 3RF calcium carbonate-vitamin D3 [Calcium 600 with Vitamin D3] 600 mg-12.5 mcg (500 unit) capsule 1 cap PO HS cyclobenzaprine 10 mg tablet 10 mg PO TID PRN (Reason: muscle spasm) Qty: 30 0RF timolol maleate 0.5 % drops 1 drp OPB QAM cyclosporine [Restasis] 0.05 % Dropperette 1 drp OPB Q12H PRN (Reason: Dry Eye(S)) levothyroxine 75 mcg tablet 75 mcg PO DAILY duloxetine 20 mg capsule,delayed release(DR/EC) 20 mg PO DAILY ketoconazole 2 % shampoo See Rx Instructions topical Q14D PRN (Reason: Other) Rx Instructions: Apply a small amount and lather topical every 14 days; Changed acetaminophen 325 mg Tablet 975 mg PO Q8H Qty: 30 0RF Discontinued tramadol 50 mg tablet 50 mg PO BID PRN (Reason: pain) Qty: 60 0RF Discharge Orders: Discharge Order (Routine); Ordered 02/19/23 Ordered By: Armida Russell Admission Data Admit Date/Time: 02/16/23 10:44 Attending Provider: Armida Russell I. Admit Provider: Dinora Mauricio Primary Care Provider: Humberto Hyatt Other Providers: Ruperto Bacon ; Dinora Mauricio ; [facility] Other Interventions: Discharge Summary Assessment (RN) Last Done: 02/19/23 12:47
[2023-02-20] MEDS ORDERED: POLYETHYLENE (MIRALAX) 17 GM PACK PO SCH (09:00)
== END 2023-02-19 14:12 | DRG 542 ==
LOC: ED 07:36 → SUATTDRO 10:44 → 2W 10:44